=== PATIENT | male | born 1980 | race African-American/Black ===

== ENCOUNTER 2023-12-17 10:45 | Inpatient (IN) ==
--- NOTE | 2023-12-17 11:32 | Emergency Department Note ---
History of Present Illness General Chief complaint: Foreign Body Stated complaint: SWALLOWED SPORKS Time Seen by Provider: 12/17/23 11:22 History of Present Illness Maximum Pain Intensity: 8 NAME: BRANDON WALTERS AGE: 43 SEX: M : 1980 ARRIVES VIA: Walk-In INFORMANT: Patient ED PROVIDER(S): ABDULLAHI Tello, Hans Momin MD The patient is a 43-year-old male who arrives to the emergency department from the [facility] for ingestion of foreign body. He reports he has swallowed multiple sporks over the last few months. He reports initial attempts were to harm himself, however he states he is currently not suicidal or homicidal. He reports the last time he swallowed a foreign body was November 18 of this year. He reports upper abdominal pain, with diarrhea and bloody stools. He denies fever, he reports he is diabetic, insulin-dependent. He reports no nausea or vomiting, he is alert and oriented and able to answer questions appropriately, his vital signs are stable. Home Medications Medication Instructions Recorded Confirmed Type albuterol sulfate 90 mcg/actuation 2 puff inhalation QID PRN SOB ##0 09/30/23 12/17/23 History aerosol inhaler insulin glargine 100 unit/mL 30 unit subcut BID 09/30/23 12/17/23 History subcutaneous solution insulin regular human 100 unit/mL See Rx Instructions .Route .COMPLEX 09/30/23 12/17/23 History injection solution (Novolin R Regular U-100 Insulin) bismuth subsalicylate 262 mg/15 mL 524 mg PO BID PRN Abdominal Pain 12/17/23 12/17/23 History oral suspension Allergies Allergy/AdvReac Type Severity Reaction Status Date / Time mayonnaise Allergy Unknown Unknown Verified 12/17/23 14:16 shellfish derived Allergy Unknown Unknown Verified 12/17/23 14:16 Past Med/Surg History Problem List (Updated 12/17/23 @ 18:50 by ABDULLAHI Riddle) Rectal bleeding Abdominal pain Nausea and vomiting (Acute) Acute upper abdominal pain (Acute) Foreign body, swallowed (Acute) Foreign body ingestion History of endoscopy Antisocial personality disorder Cannabis use disorder Asthma Diabetes mellitus type 2 with complications Pure hypercholesterolemia Benign hypertension Conduct disorder, unspecified Social History Smoking Status: Never smoker Preferred Language: Nigerien Feels Safe at Home: Yes Physical Exam Vital Signs Vital Signs - 24 hr 12/17/23 11:14 12/17/23 13:27 12/17/23 15:21 Temperature 36.9 C Temperature Source Temporal Artery Scan Pulse Rate 86 Pulse Rate [Left] 78 78 Pulse Rhythm [Left] Pulse Strength [Left] Respiratory Rate 18 16 16 Respiratory Effort / Characteristics Non-Labored Spontaneous Non-Labored Spontaneous Non-Labored Spontaneous Respiratory Depth Normal Normal Normal Respiratory Pattern Regular Blood Pressure 158/102 H Blood Pressure [Left Arm] 135/96 149/99 H Blood Pressure Mean 120 Blood Pressure Mean [Left Arm] 109 115 Blood Pressure Position Sitting Blood Pressure Position [Left Arm] Pulse Oximetry 99 98 99 Oxygen Delivery Method Room Air Room Air Room Air Sepsis Recent Fever Within 48 Hours No Sepsis New/Unexplained Change in Mental Status N/A Sepsis Action Taken by Nursing No Action Required 12/17/23 17:18 12/17/23 17:40 Temperature 37 C Temperature Source Oral Pulse Rate Pulse Rate [Left] 82 86 Pulse Rhythm [Left] Regular Regular Pulse Strength [Left] Normal Respiratory Rate 20 18 Respiratory Effort / Characteristics Non-Labored Non-Labored Spontaneous Respiratory Depth Normal Normal Respiratory Pattern Regular Blood Pressure Blood Pressure [Left Arm] 147/98 H 151/93 H Blood Pressure Mean Blood Pressure Mean [Left Arm] 114 112 Blood Pressure Position Blood Pressure Position [Left Arm] Lying Lying Pulse Oximetry 99 92 Oxygen Delivery Method Room Air Room Air Sepsis Recent Fever Within 48 Hours Sepsis New/Unexplained Change in Mental Status Sepsis Action Taken by Nursing VITALS: Vitals are noted on the nurse's note and reviewed by myself. Hypertension. GENERAL: 43-year-old male, in no acute distress, nondiaphoretic, well-developed well-nourished. SKIN: The skin was without rashes, erythema, edema, or bruising. HEAD: Normocephalic atraumatic. HEART: Regular rate and rhythm without murmurs gallops or rubs. LUNGS: Clear to auscultation bilaterally without wheezes, rales or rhonchi. No retractions or accessory muscle use. ABDOMEN: Diffuse upper abdominal pain, tenderness to palpation. No rebound tenderness or guarding, abdomen is soft. MUSCULOSKELETAL: No muscle atrophy, erythema, or edema noted. Full range of motion without joint tenderness in all extremities. No tenderness to palpation. Normal gait. Strength 5/5 throughout. NEURO: Patient was alert and oriented to person place and time. No focal neurological deficits. Course Administered Medications Discontinued Medications Ioversol (Optiray 320 100ml) 92 ml IV ONCE ONE Stop: 12/17/23 15:54 Last Admin: 12/17/23 15:54 Dose: 92 ml Documented By: EDK Medical Decision Making Differential Diagnosis Foreign body ingestion, perforation, infection, as well as other pathologies. Medical Records Attestation: I reviewed the patient's medical records. Home Medications Current Medication List: was personally reviewed by me Laboratory Data Attestation: I reviewed the patient's lab results. No leukocytosis, stable hemoglobin and hematocrit, no significant electrolyte abnormalities, urinalysis 3+ glucose, negative for infection. 12/17/23 12:29 12/17/23 12:29 Lab Results 12/17/23 12/17/23 12/17/23 Range/Units 12:15 12:29 17:45 WBC 6.42 (4.8-10.8) K/ul RBC 5.65 (4.70-6.10) M/uL Hgb 13.7 L (14.0-18.0) g/dl Hct 42.8 (42.0-52.0) % MCV 75.8 L (80.0-100.0) fL MCH 24.2 L (25.0-34.0) pg MCHC 32.0 (32.0-36.0) g/dL RDW Std Deviation 35.9 L (36.4-46.3) fL RDW Coeff of Lety 13.4 (11.5-14.5) % Plt Count 256 (130-400) K/uL MPV 10.5 (9.4-12.4) fL Immature Gran % (Auto) 0.3 % Neut % (Auto) 61.7 % Lymph % (Auto) 27.7 % Summers % (Auto) 6.4 % Eos % (Auto) 3.4 % Baso % (Auto) 0.5 % Neut # (Auto) 3.96 (1.40-6.50) K/uL Lymph # (Auto) 1.78 (1.20-3.40) K/uL Summers # (Auto) 0.41 (0.11-0.59) K/uL Eos # (Auto) 0.22 (0.00-0.50) K/uL Baso # (Auto) 0.03 (0.00-0.20) K/uL Immature Gran # (Auto) 0.02 (0.01-0.20) K/uL Sodium 136 (136-145) mmol/L Potassium 4.1 (3.5-5.1) mmol/L Chloride 102 (98-107) mmol/L Carbon Dioxide 29 (21-32) mmol/L Anion Gap 5 (3-11) BUN 10 (6-23) mg/dl Creatinine 1.04 (0.6-1.4) mg/dl Est Cr Clr Drug Dosing 88.3 ml/min Est GFR ( Amer) 100.0 ml/min Est GFR (Non-Af Amer) 86.3 ml/min BUN/Creatinine Ratio 9.6 L (10-20) Glucose 261 H (70-99(Fasting)) mg/dl POC Glucose 77 (70-99) mg/dl Calcium 9.3 (8.6-10.3) mg/dl Total Bilirubin 0.4 (0.2-1.0) mg/dl AST 21 (13-39) U/L ALT 31 (7-52) U/L Alkaline Phosphatase 57 (34-104) U/L Total Protein 7.5 (6.0-8.3) gm/dl Albumin 4.4 (3.4-5.0) gm/dl Globulin 3.1 (2.5-4.0) gm/dl Albumin/Globulin Ratio 1.4 (0.9-2) Urine Color Yellow Urine Appearance Clear (Clear) Urine pH 6.5 (4.5-7.5) Ur Specific [place] 1.019 (1.000-1.030) Urine Protein Negative (Negative) Urine Glucose (UA) 3+ H (Negative) Urine Ketones Negative (Negative) Urine Blood Negative (Negative) Urine Nitrite Negative (Negative) Urine Bilirubin Negative (Negative) Urine Urobilinogen Negative (Negative) Ur Leukocyte Esterase Negative (Negative) Imaging Data Attestation: I personally reviewed and interpreted this imaging study as follows: Radiologist's Impression: KUB X-Ray 12/17/23 11:55 KUB CLINICAL HISTORY: Foreign body assessment. The patient swallowed a spork. FINDINGS: 3 AP, portable, supine abdominal radiographs are compared to study dated 09/30/2023. A 16 cm linear radiodense foreign body projects over the left upper quadrant, likely corresponding to the reported history of an ingested spork. There may be a second linear radiodense Foreign body projecting over the central upper abdomen. This is not well delineated. A button projecting over the right midabdomen could represent an ingested foreign body or could be external to the patient. No bowel obstruction is seen. Moderate fecal retention is noted in the right colon. There are no abnormal abdominal calcifications. The bony structures appear intact. IMPRESSION: 1. A 16 cm linear radiodense foreign body projecting over left upper quadrant likely corresponds to the reported history of a swallowed spork. 2. There may be a second faintly radiodense foreign body projected over the central upper abdomen. This nodule delineated. 3. A button projecting the right mid abdomen could represent an additional ingested foreign body or could be external to the patient. Correlate clinically. Electronically signed by: Hans Mckeon M.D. 12/17/2023 12:36 PM Abdomen/Pelvis CT 12/17/23 13:[address] WITH IV AND ORAL CONTRAST CT DOSE: 605.88 mGy.cm HISTORY: foreign body, rectal bleeding TECHNIQUE: Multiaxial CT images of the abdomen and pelvis were performed following the use of intravenous and oral contrast. A dose lowering technique was utilized adhering to the principles of ALARA. COMPARISON STUDY: None. FINDINGS: There is a 3 mm nodule within the left lower lobe on image 34. Mild dependent changes seen at the lung bases. No pneumoperitoneum. No pneumatosis. The liver, gallbladder, pancreas, spleen, and adrenal glands are unremarkable. The main portal vein is patent. Multiple bilateral renal hypodense lesions. Some of these are subcentimeter in size and technically too small to characterize. However, these favor cysts. No hydronephrosis. Normal caliber abdominal aorta. No retroperitoneal or pelvic lymphadenopathy. The bladder is unremarkable. Moderate fecal retention. No bowel wall thickening or obstruction. Normal appendix. There is a linear spoon-shaped radiopaque foreign body within the gastric antrum which extends into the proximal duodenum. This measures approximately 12 cm in length. There are multiple additional similar-appearing spoon-shaped radio opaque foreign bodies within a jejunal loop within the left side the abdomen also measuring 12 cm in length. The loop of bowel surrounding the radiopaque foreign bodies is slightly distended. However, no evidence for a bowel obstruction or bowel perforation at this time. IMPRESSION: 1. Multiple spoon-shaped radiopaque foreign bodies seen within the stomach/duodenum and a loop of the jejunum within the left mid abdomen. No evidence for a bowel obstruction or bowel perforation at this time. 2. A 3 mm indeterminate pulmonary nodule within the left lower lobe. ACT 112: Negative or not required by law. Electronically signed by: Gurwinder Higgins M.D. 12/17/2023 4:27 PM Blood Pressure Blood Pressure Findings: Elevated blood pressure Blood Pressure Disposition: elevated BP felt to be situational MDM Narrative The patient is a 43-year-old male who arrives to the emergency department for the above-stated complaint. Upon examination the patient reports diffuse tenderness to palpation of the upper abdomen, with foreign body ingestion in November. He reports diarrhea and bloody stools as well. He denies fever, nausea, vomiting. He reports he is an insulin-dependent diabetic. A saline lock was established, CBC, CMP were obtained which showed no leukocytosis, stable hemoglobin and hematocrit, and no significant electrolyte abnormalities. Urinalysis was obtained which showed 3+ glucose with no signs of infection. X- ray imaging of the abdomen shows a 16 cm linear radiodense foreign body projecting over the left upper quadrant likely corresponding to the reported history of a swallowed sport. There also may be a second faintly radiodense foreign body present over the central abdomen. I spoke with the emergency export traffic department manager to facilitate contact with gastroenterology. Dr. Quiñones was consulted who recommended endoscopy with possible general surgery consultation if needed. The patient was admitted to his services at this time, please refer to his documentation for further patient care. Impression & Plan Foreign body, swallowed, Acute upper abdominal pain Discharge Plan Visit Data Chief Complaint: Foreign Body Stated Complaint: SWALLOWED SPORKS ED Provider: Hans Momin ED Midlevel Provider: Joellen Parham Discharge Problem: Foreign body, swallowed, Acute upper abdominal pain Discharge Instructions Interventions: ED Discharge Assessment Last Done: 12/17/23 17:31 Discharge Problem: Foreign body, swallowed Qualifiers: Encounter type: initial encounter Qualified Code(s): T18.9XXA - Foreign body of alimentary tract, part unspecified, initial encounter
[2023-12-17 12:27] LABS: Appearance Urine Clear (Clear); Bilirubin Urine Negative (Negative); Blood Urine Negative (Negative); Color Urine Yellow; Glucose Urine UA 3+ (Negative); Ketones Urine Negative (Negative); Leukocyte Esterase Urine Negative (Negative); Nitrite Urine Negative (Negative); Protein Urine Negative (Negative); Specific Gravity Urine 1.019 (1.000-1.030); Urobilinogen Urine Negative (Negative); pH Urine 6.5 (4.5-7.5)
--- NOTE | 2023-12-17 12:38 | XRay Report ---
KUB CLINICAL HISTORY: Foreign body assessment. The patient swallowed a spork. FINDINGS: 3 AP, portable, supine abdominal radiographs are compared to study dated 09/30/2023. A 16 cm linear radiodense foreign body projects over the left upper quadrant, likely corresponding to the re ported history of an ingested spork. There may be a second linear radiodense Foreign body projecting over the central upper abdomen. This is not well delineated. A button projecting over the right midab domen could represent an ingested foreign body or could be external to the patient. No bowel obstruct ion is seen. Moderate fecal retention is noted in the right colon. There are no abnormal abdominal ca lcifications. The bony structures appear intact. IMPRESSION: 1. A 16 cm linear radiodense foreign body projecting over left upper quadrant likely corresponds to t he reported history of a swallowed spork. 2. There may be a second faintly radiodense foreign body projected over the central upper abdomen. Th is nodule delineated. 3. A button projecting the right mid abdomen could represent an additional ingested foreign body or c ould be external to the patient. Correlate clinically. Electronically signed by: Hans Mcekon M.D. 12/17/2023 12:36 PM
[2023-12-17 12:54] LABS: Basophils # (auto) 0.03 K/uL (0.00-0.20); Basophils % (auto) 0.5 %; Eosinophils # (auto) 0.22 K/uL (0.00-0.50); Eosinophils % (auto) 3.4 %; Hematocrit (blood only) 42.8 % (42.0-52.0); Hemoglobin 13.7 g/dl (14.0-18.0); Immature Granulocytes # (auto) 0.02 K/uL (0.01-0.20); Immature Granulocytes % (auto) 0.3 %; Lymphocytes # (auto) 1.78 K/uL (1.20-3.40); Lymphocytes % (auto) 27.7 %; Mean Corpuscular Hemoglobin 24.2 pg (25.0-34.0); Mean Corpuscular Volume 75.8 fL (80.0-100.0); Mean Platelet Volume 10.5 fL (9.4-12.4); Monocytes # (auto) 0.41 K/uL (0.11-0.59); Monocytes % (auto) 6.4 %; Neutrophils # (auto) 3.96 K/uL (1.40-6.50); Neutrophils % (auto) 61.7 %; Platelet Count 256 K/uL (130-400); RDW Coefficient of Variation 13.4 % (11.5-14.5); RDW Standard Deviation 35.9 fL (36.4-46.3); Red Blood Count 5.65 M/uL (4.70-6.10); White Blood Count 6.42 K/ul (4.8-10.8)
[2023-12-17 13:05] LABS: Albumin Globulin Ratio 1.4 (0.9-2); Albumin Level 4.4 gm/dl (3.4-5.0); BUN Creatinine Ratio 9.6 (10-20); Bilirubin,Total 0.4 mg/dl (0.2-1.0); Calcium 9.3 mg/dl (8.6-10.3); Creatinine Clr Calc Pharmacy 88.3 ml/min; Est GFR (Non-African American) 86.3 ml/min; Globulin 3.1 gm/dl (2.5-4.0); Potassium 4.1 mmol/L (3.5-5.1); Total Protein 7.5 gm/dl (6.0-8.3)
--- NOTE | 2023-12-17 14:14 | Gastrointestinal Consultation ---
<Statement entered by Jerrell Quiñones MD - 12/17/23 17:10> Patient seen and examined. Case discussed with MARINE OILER. The repeat CT shows no perforation and FB in stomach and jejunum. We may not be able to reach the FB in the jejunum. The EGD procedure, alternatives including no work up or treatment, risks and benefits were discussed. Among the risks discussed included cardiorespiratory suppression,aspiration, bleeding, failure to diagnose cancer or other pathology and perforation requiring surgery. In addition we discussed that if specimens are obtained it may be deemed beneficial to send these for genetic/DNA testing. The patient claimed to understand all that was discussed, consented to all and all of his questions were answered. Date of Consultation December 17, 2023 Assessment & Plan (1) Foreign body, swallowed: (2) Abdominal pain: (3) Rectal bleeding: Plan Unclear location of foreign bodies. Discussed with Dr. Quiñones, on-call booking police officer. Will obtain a CT scan for further evaluation and further decisions regarding any potential endoscopic intervention. History of Present Illness Reason for Consultation: Food bolus, rectal bleeding History of Present Illness Patient is a 43 yo incarcerated male who presented to the ED due to reports of ingesting sporks & rectal bleeding. He has a history of ingesting foreign objects in the past and had an EGD on 09/30/23 for spork removal. The patient notes he has RLQ pain. He denies upper abdominal pain. He denies vomiting. He notes bright red blood per rectum, worsened with bowel movements. He has not had a bowel movement since 12/13/23. PMH includes asthma, DM2, HLD, HTN, and antisocial personality disorder. Xray imaging in the ED indicated: IMPRESSION: 1. A 16 cm linear radiodense foreign body projecting over left upper quadrant likely corresponds to the reported history of a swallowed spork. 2. There may be a second faintly radiodense foreign body projected over the central upper abdomen. This nodule delineated. 3. A button projecting the right mid abdomen could represent an additional ingested foreign body or could be external to the patient. Correlate clinically. Allergies Allergy/AdvReac Type Severity Reaction Status Date / Time [facility] Allergy Unknown Unknown Verified 12/17/23 14:16 shellfish derived Allergy Unknown Unknown Verified 12/17/23 14:16 Home Medications Medication Instructions Recorded Confirmed Type albuterol sulfate 90 mcg/actuation 2 puff inhalation QID PRN SOB ##0 09/30/23 12/17/23 History aerosol inhaler insulin glargine 100 unit/mL 30 unit subcut BID 09/30/23 12/17/23 History subcutaneous solution insulin regular human 100 unit/mL See Rx Instructions .Route .COMPLEX 09/30/23 12/17/23 History injection solution (Novolin R Regular U-100 Insulin) bismuth subsalicylate 262 mg/15 mL 524 mg PO BID PRN Abdominal Pain 12/17/23 12/17/23 History oral suspension Patient History Social History Smoking Status: Never smoker Preferred Language: Serbian Feels Safe at Home: Yes Review of Systems Constitutional: no fever and no chills Respiratory: no cough and no dyspnea Cardiovascular: no chest pain Gastrointestinal: + abdominal pain (RLQ pain), + constipat ion and + blood in stools Physical Exam Constitutional: well developed Respiratory: normal respiratory effort, lungs clear to auscultation Cardiovascular: Rate/Rhythm: regular rate Gastrointestinal (Abdomen): normal bowel sounds, soft, nontender, no hepatosplenomegaly Musculoskeletal: Head/Neck/Chest: normocephalic Psychiatric: Orientation: alert and oriented x 3 Results & Data Vital Signs (Past 12 Hours) Vital Signs Temp Pulse Pulse Resp BP BP Pulse Ox 12/17/23 13:27 78 16 135/96 98 12/17/23 11:14 36.9 C 86 18 158/102 H 99 O2 Del Method 12/17/23 13:27 Room Air 12/17/23 11:14 Room Air PG Care Time/CCT Total # of Minutes Spent Total Time Spent with Patient: Total time spent is greater than 50% in coordination of care (as documented) at patient's floor/unit and/or counseling patient: Coding Level of Care Code 02631 IN/OBS CONSULT LVL 4,60M Diagnoses Foreign body, swallowed T18.9XXA Encounter type: initial encounter Abdominal pain R10.9 Rectal bleeding K62.5 (1) Foreign body, swallowed Encounter type: initial encounter Qualified Code(s): T18.9XXA - Foreign body of alimentary tract, part unspecified, initial encounter
[2023-12-17] MEDS: OPTIRAY 320 100ml IV ONE (15:54)
--- NOTE | 2023-12-17 16:28 | CT Scan Report ---
ABDOMEN AND PELVIS CT WITH IV AND ORAL CONTRAST CT DOSE: 605.88 mGy.cm HISTORY: foreign body, rectal bleeding TECHNIQUE: Multiaxial CT images of the abdomen and pelvis were performed following the use of intrave nous and oral contrast. A dose lowering technique was utilized adhering to the principles of ALARA. COMPARISON STUDY: None. FINDINGS: There is a 3 mm nodule within the left lower lobe on image 34. Mild dependent changes seen at the lung bases. No pneumoperitoneum. No pneumatosis. The liver, gallbladder, pancreas, spleen, and adrenal glands are unremarkable. The main portal vein is patent. Multiple bilateral renal hypodense lesions. Some of these are subcentimeter in size and technically too small to characterize. However, these favor cysts. No hydronephrosis. Normal caliber abdominal aorta. No retroperitoneal or pelvic ly mphadenopathy. The bladder is unremarkable. Moderate fecal retention. No bowel wall thickening or obs truction. Normal appendix. There is a linear spoon-shaped radiopaque foreign body within the gastric antrum which extends into the proximal duodenum. This measures approximately 12 cm in length. There a re multiple additional similar-appearing spoon-shaped radio opaque foreign bodies within a jejunal lo op within the left side the abdomen also measuring 12 cm in length. The loop of bowel surrounding the radiopaque foreign bodies is slightly distended. However, no evidence for a bowel obstruction or bow el perforation at this time. IMPRESSION: 1. Multiple spoon-shaped radiopaque foreign bodies seen within the stomach/duodenum and a loop of the jejunum within the left mid abdomen. No evidence for a bowel obstruction or bowel perforation at thi s time. 2. A 3 mm indeterminate pulmonary nodule within the left lower lobe. ACT 112: Negative or not required by law. Electronically signed by: Gurwinder Higgins M.D. 12/17/2023 4:27 PM
[2023-12-17] MEDS ORDERED: SIMETHICONE (ENDO) IR PRN (17:06)
[2023-12-17] MEDS ORDERED: MIDAZOLAM HCL 1 MG/ML 2ML VIAL ONE (17:12)
[2023-12-17] MEDS ORDERED: fentaNYL citrate PF 100 MCG/2 ML VIAL ONE ×2 (17:12→18:12)
[2023-12-17] MEDS ORDERED: SUCCINYLCHOLINE CHLORIDE 20 MG/ML 10 ML VIAL IV ONE (17:13)
[2023-12-17] MEDS ORDERED: LIDOCAINE 2% 2 ML VIAL/AMP(20MG/ML) INFIL ONE (17:13)
[2023-12-17] MEDS ORDERED: PROPOFOL IV EMULSION 10 MG/ML 20 ML VIAL IV ONE (17:13)
--- NOTE | 2023-12-17 17:21 | Anesthesiology Consultation ---
Date of Service December 17, 2023 Assessment & Plan Chart Review Chart Review: Acceptable Risk for Surgery and Patient NOT seen in Pre Admission Testing History Surgery Operation Date: 12/17/23 17:00 Proposed Procedures p Esophagogastroduodenoscopy, Food Bolus - Jerrell Alida Quiñones MD Height/Weight Height: 5 ft 6 in Weight: 78.2 kg Allergies Allergy/AdvReac Type Severity Reaction Status Date / Time mayonnaise Allergy Unknown Unknown Verified 12/17/23 14:16 shellfish derived Allergy Unknown Unknown Verified 12/17/23 14:16 Medications Home Medications Medication Instructions Recorded Confirmed Last Taken albuterol sulfate 90 mcg/actuation 2 puff inhalation QID PRN SOB ##0 09/30/23 12/17/23 Unknown aerosol inhaler insulin glargine 100 unit/mL 30 unit subcut BID 09/30/23 12/17/23 12/17/23 subcutaneous solution insulin regular human 100 unit/mL See Rx Instructions .Route .COMPLEX 09/30/23 12/17/23 12/16/23 injection solution (Novolin R Regular U-100 Insulin) bismuth subsalicylate 262 mg/15 mL 524 mg PO BID PRN Abdominal Pain 12/17/23 12/17/23 Unknown oral suspension NPO Date Last Intake of Fluids: 12/17/23 Time Last Intake of Fluids: 09:00 Last Intake of Fluids Comment: coffee Date Last Intake of Solids: 12/17/23 Time Last Intake of Solids: 09:00 Last Intake of Solids Comment: cream of wheat Social History Smoking Status: Never smoker Physical Exam Vital Signs Last Vital Signs Temp 36.9 C 12/17/23 11:14 Pulse 82 12/17/23 17:18 Resp 20 12/17/23 17:18 BP 147/98 H 12/17/23 17:18 Pulse Ox 99 12/17/23 17:18 O2 Del Method Room Air 12/17/23 17:18 Testing Laboratory Results 12/17/23 12:29 12/17/23 12:29 Urine Color Yellow 12/17/23 12:15 Urine Appearance Clear (Clear) 12/17/23 12:15 Urine pH 6.5 (4.5-7.5) 12/17/23 12:15 Ur Specific [place] 1.019 (1.000-1.030) 07/12/24 12:15 Urine Protein Negative (Negative) 12/17/23 12:15 Urine Glucose (UA) 3+ (Negative) H 12/17/23 12:15 Urine Ketones Negative (Negative) 12/17/23 12:15 Urine Nitrite Negative (Negative) 12/17/23 12:15 Ur Leukocyte Esterase Negative (Negative) 12/17/23 12:15
[2023-12-17] MEDS ORDERED: ePHEDrine sulfate 50 MG/ML AMP IV PRN (17:43)
[2023-12-17] MEDS ORDERED: ONDANSETRON INJ 2 MG/ML 2 ML VIAL IV PRN (17:43)
[2023-12-17] MEDS ORDERED: ATROPINE SULFATE 0.1 MG/ML 10ML SYR IV PRN (17:43)
[2023-12-17] MEDS ORDERED: fentaNYL citrate PF 100 MCG/2 ML VIAL IV PRN (17:43)
[2023-12-17] MEDS ORDERED: DEXTROSE 50% 50 ML SYRINGE IV PRN ×2 (17:52→21:11)
[2023-12-17] MEDS ORDERED: NALOXONE HCL 0.4 MG/1 ML VIAL/CARP ONE (19:21)
--- NOTE | 2023-12-17 19:33 | GI REPORT ---
[facility] Patient: BRANDON WALTERS : 1980 Sex at : Male Age: 43 Years Procedure: Upper GI endoscopy Date: 12/17/2023 Attending Physician: Jerrell Quiñones MD Referring MD: Marquise ERAZO Indications: - Gastrointestinal foreign body Medications: - General Anesthesia - See the Anesthesia note for documentation of the administered medications Complications: - No immediate complications. Estimated Blood Loss: - Estimated blood loss was minimal. Procedure: - The egd scope was introduced through the mouth and advanced to the jejunum. - The upper GI endoscopy was extremely difficult due to presence of foreign body. - The patient tolerated the procedure. Findings: - The examined esophagus was normal. - 3 sporks were found in the gastric antrum and in the gastric body. There was also ulceration and erosions in distal body and antrum likely trauma related from sporks. These were removed one at a time. and stomach was cleared. - Multiple erosions were found in the duodenal bulb, in the first portion of the duodenum and in the second portion of the duodenum. - A few erosions without bleeding were found in the jejunum. After 3 sporks were removed we inserted a pediatric colonoscope and completed the exam to the jejunum where it was mentioned on CT that another foreign body was identified. We saw evidence of erosions - likely traumatic - but no foreign body. Impression: - Normal esophagus. - Were found in the stomach. - Duodenal erosions. - Jejunal erosion without bleeding. - No specimens collected. Recommendation: - Observe patient's clinical course. Procedure Code(s): - 83107, Esophagogastroduodenoscopy, flexible, transoral; diagnostic, including collection of specimen(s) by brushing or washing, when performed (separate procedure) Diagnosis Code(s): - T18.2XXA, Foreign body in stomach, initial encounter - K26.9, Duodenal ulcer, unspecified as acute or chronic, without hemorrhage or perforation - K28.9, Gastrojejunal ulcer, unspecified as acute or chronic, without hemorrhage or perforation CPT(R) - 2023 copyright [employer]. All Rights Reserved. The CPT codes, CCI edits and ICD codes generated are intended as suggestions and were generated based on input data. These codes are preliminary and upon traffic or system dispatcher review may be revised to meet current compliance and payer requirements. The provider is responsible for the final determination of appropriate codes, and modifiers. Jerrell Quiñones MD This document has been electronically signed. Note Initiated:12/17/2023 Note Completed:12/17/2023 7:32 PM Jrerell Quiñones This document has been electronically signed. Note Amended:12/17/2023 7:37 PM [id number]
[2023-12-17] MEDS: DEXTROSE 50% 50 ML SYRINGE IV ONE (19:54)
[2023-12-17] MEDS: DEXTROSE 50% 50 ML SYRINGE IV STA (19:54)
--- NOTE | 2023-12-17 20:45 | Anesthesiology Progress Note ---
Date of Service December 17, 2023 Anesthesia Post Procedure Vital Signs Vital Signs: Temp Pulse Pulse Pulse Resp BP BP 12/17/23 20:25 88 12 137/86 12/17/23 20:15 36.4 C L 86 12 133/82 12/17/23 20:05 90 12 137/86 12/17/23 19:55 99 H 12 136/74 12/17/23 19:45 97 H 18 133/82 12/17/23 19:37 36.0 C L 100 H 10 L 133/86 12/17/23 17:40 37 C 86 18 151/93 H 12/17/23 17:18 82 20 147/98 H 12/17/23 15:21 78 16 149/99 H 12/17/23 13:27 78 16 135/96 12/17/23 11:14 36.9 C 86 18 158/102 H Pulse Ox O2 Del Method O2 Flow Rate 12/17/23 20:25 100 Nasal Cannula 2 12/17/23 20:15 100 Nasal Cannula 2 12/17/23 20:05 97 Nasal Cannula 2 12/17/23 19:55 94 Room Air 12/17/23 19:45 95 Room Air 12/17/23 19:37 99 Oxymask 4 12/17/23 17:40 92 Room Air 12/17/23 17:18 99 Room Air 12/17/23 15:21 99 Room Air 12/17/23 13:27 98 Room Air 12/17/23 11:14 99 Room Air Pain Intensity Abdomen: Pain Intensity: 6 Transfer of Care Handoff Completed per policy Notes Mental Status: alert / awake / arousable and participated in evaluation Patient Amnestic to Procedure: Yes Nausea / Vomiting: adequately controlled Pain: adequately controlled Airway Patency, RR, SpO2: stable & adequate BP & HR: stable & adequate Hydration State: stable & adequate Anesthetic Complications: no major complications apparent and Pt Satisfied with anesthetic care
--- NOTE | 2023-12-17 21:00 | History & Physical Report ---
Date of Service December 17, 2023 Assessment & Plan (1) GI bleed: Plan: Duodenal and jejunal erosions on endoscopy post intentional ingestion of multiple foreign bodies (sporks) from last month. Anemia secondary to above hypertension, BP stable, patient not on maintenance medications hyperlipidemia, not on statin Rx DM 2 insulin requiring, hypoglycemic episode upon arrival at the ER, hemoglobin A1c noted to be 9.3 bronchial asthma, not in acute exacerbation antisocial personality disorder/impulse control/conduct disorder, patient currently without self-harm intent Incidental finding of pulmonary nodule Admit to medical telemetry IV PPI Follow H&H, transfuse PRBC if hemoglobin less than 7 and or from symptomatic anemia Repeat CT abdomen pelvis and General Surgery consult as per GI recommendations Re: Retained ingested foreign bodies (Dr. Paris already consulted by GI specialist.) Continue n.p.o. status Hold basal insulin for now, resume basal insulin adjusted for n.p.o. status once hypoglycemia resolved, ISS BG goal 1 10-1 40 Outpatient follow-up surveillance imaging for SPN following Fleischner criteria DVT prophylaxis. SCDs Re: GI bleed Full code Text document was generated using [employer] voice recognition software. It may contain grammatical or spelling errors. Kindly contact undersigned for clarification of any documentation item in question. History of Present Illness Chief Complaint: Abdominal pain, foreign body ingestion Primary Care Provider: CASTRO Camarillo History obtained from patient and records. Medical history significant for hypertension, hyperlipidemia, DM 2 insulin requiring, bronchial asthma, antisocial personality disorder, impulse control/ conduct disorder. Last [facility] ER visit September 2023 for spoon ingestion secondary to self-harm. Gastritis and nonbleeding duodenal ulcers noted on EGD. Two sporks removed successfully. Patient discharged on Prilosec course. Last month, patient ingested multiple sporks again secondary to fleeting self- harm intent. 10 days ago, patient noted achy abdominal pain radiating to his chest and left shoulder associated with bloody diarrhea symptoms. No hematemesis, coffee-ground emesis, fever or chills as per patient. Patient without self-harm intent since last month. Patient sent to ER today due to worsening symptoms. CT abdomen pelvis showed multiple spoon-shaped radiopaque foreign bodies seen within the stomach/duodenum and a loop of the jejunum within the left mid abdomen. Urgent EGD done by GI specialist on-call. Duodenal and jejunal erosions noted on endoscopy. 3 sporks were found in the gastric antrum and subsequently removed. GI specialist recommended admission for surgical evaluation due to potential remaining foreign bodies in the small intestine. Medical History as above Surgical History : None Family History : Heart disease Personal/Social history : Non-smoker, no EtOH intake, current inmate Allergies Allergy/AdvReac Type Severity Reaction Status Date / Time mayonnse Allergy Unknown Unknown Verified 12/17/23 14:16 shellfish derived Allergy Unknown Unknown Verified 12/17/23 14:16 Home Medications Medication Instructions Recorded Confirmed Type albuterol sulfate 90 mcg/actuation 2 puff inhalation QID PRN SOB ##0 09/30/23 12/17/23 History aerosol inhaler insulin glargine 100 unit/mL 30 unit subcut BID 09/30/23 12/17/23 History subcutaneous solution insulin regular human 100 unit/mL See Rx Instructions .Route .COMPLEX 09/30/23 12/17/23 History injection solution (Novolin R Regular U-100 Insulin) bismuth subsalicylate 262 mg/15 mL 524 mg PO BID PRN Abdominal Pain 12/17/23 12/17/23 History oral suspension Past Med/Surg History Problem List (Updated 12/18/23 @ 10:20 by Jerrell Quiñones MD) Gastric erosion GI bleed Rectal bleeding Abdominal pain Nausea and vomiting (Acute) Acute upper abdominal pain (Acute) Foreign body, swallowed (Acute) Foreign body ingestion History of endoscopy Antisocial personality disorder Cannabis use disorder Asthma Diabetes mellitus type 2 with complications Pure hypercholesterolemia Benign hypertension Conduct disorder, unspecified Social History Smoking Status: Never smoker Hx Alcohol Use: No Hx Substance Use: No Preferred Language: Greenlandic Communication Ability: Effective 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 Beliefs That Will Affect Care: None Current Living Situation: Other Current Living Situation Comment: Inmate at [facility] Feels Safe at Home: Yes Assistive Devices: Glasses Review of Systems Review of Systems: As per HPI, all other systems reviewed and negative Physical Exam Physical Exam: GENERAL: Comfortable, slightly anxious, no respiratory distress SKIN: Pallor, warm HEENT: Alopecia, pale palpebral conjunctivae, no ptosis, dry buccal mucosa NECK : Supple, no tenderness CHEST : CTA, no tenderness HEART : RRR, no obvious murmurs ABDOMEN: Some distention, hypogastric tenderness EXTREMITIES : No LE swelling/tenderness, no other conspicuous deformities noted NEUROLOGIC : Coherent, no facial asymmetry, no other gross focality Results & Data Results & Data Vital Signs (Past 12 Hours) Vital Signs Temp Pulse Pulse Pulse Resp BP BP 12/17/23 20:25 88 12 137/86 12/17/23 20:15 36.4 C L 86 12 133/82 12/17/23 20:05 90 12 137/86 12/17/23 19:55 99 H 12 136/74 12/17/23 19:45 97 H 18 133/82 12/17/23 19:37 36.0 C L 100 H 10 L 133/86 12/17/23 17:40 37 C 86 18 151/93 H 12/17/23 17:18 82 20 147/98 H 12/17/23 15:21 78 16 149/99 H 12/17/23 13:27 78 16 135/96 12/17/23 11:14 36.9 C 86 18 158/102 H Pulse Ox O2 Del Method O2 Flow Rate 12/17/23 20:25 100 Nasal Cannula 2 12/17/23 20:15 100 Nasal Cannula 2 12/17/23 20:05 97 Nasal Cannula 2 12/17/23 19:55 94 Room Air 12/17/23 19:45 95 Room Air 12/17/23 19:37 99 Oxymask 4 12/17/23 17:40 92 Room Air 12/17/23 17:18 99 Room Air 12/17/23 15:21 99 Room Air 12/17/23 13:27 98 Room Air 12/17/23 11:14 99 Room Air Laboratory Results Laboratory Results WBC 6.42 K/ul (4.8-10.8) 12/17/23 12:29 RBC 5.65 M/uL (4.70-6.10) 12/17/23 12:29 Hgb 13.7 g/dl (14.0-18.0) L 12/17/23 12:29 Hct 42.8 % (42.0-52.0) 12/17/23 12:29 MCV 75.8 fL (80.0-100.0) L 12/17/23 12:29 MCH 24.2 pg (25.0-34.0) L 12/17/23 12:29 MCHC 32.0 g/dL (32.0-36.0) 12/17/23: RDW Std Deviation 35.9 fL (36.4-46.3) L 12/17/23: RDW Coeff of Lety 13.4 % (11.5-14.5) 12/17/23 12: Plt Count 256 K/uL (130-400) 12/17/23: MPV 10.5 fL (9.4-12.4) 12/17/23 12: Immature Gran % (Auto) 0.3 % 12/17/23 12: Neut % (Auto) 61.7 % 12/17/23: Lymph % (Auto) 27.7 % 12/17/23: Christian % (Auto) 6.4 % 12/17/23 12: Eos % (Auto) 3.4 % 12/17/23: Baso % (Auto) 0.5 % 12/17/23: Neut # (Auto) 3.96 K/uL (1.40-6.50) 12/17/23: Lymph # (Auto) 1.78 K/uL (1.20-3.40) 12/17/23: Christian # (Auto) 0.41 K/uL (0.11-0.59) 12/17/23 12: Eos # (Auto) 0.22 K/uL (0.00-0.50) 12/17/23: Baso # (Auto) 0.03 K/uL (0.00-0.20) 12/17/23 12: Immature Gran # (Auto) 0.02 K/uL (0.01-0.20) 12/17/23 12: Sodium 136 mmol/L (136-145) 12/17/23 12: Potassium 4.1 mmol/L (3.5-5.1) 12/17/23 12: Chloride 102 mmol/L (98-107) 12/17/23 12: Carbon Dioxide 29 mmol/L (21-32) 12/17/23 12: Anion Gap 5 (3-11) 12/17/23 12: BUN 10 mg/dl (6-23) 12/17/23: Creatinine 1.04 mg/dl (0.6-1.4) 12/17/23 12: Est Cr Clr Drug Dosing 88.3 ml/min 12/17/23 12:29 Est GFR ( Amer) 100.0 ml/min 12/17/23 12: Est GFR (Non-Af Amer) 86.3 ml/min 12/17/23 12: BUN/Creatinine Ratio 9.6 (10-20) L 12/17/23 12:29 Glucose 261 mg/dl (70-99(Fasting)) H 12/17/23 12: POC Glucose 118 mg/dl (70-99) H 12/17/23 20:18 Calcium 9.3 mg/dl (8.6-10.3) 12/17/23 12: Total Bilirubin 0.4 mg/dl (0.2-1.0) 12/17/23 12: AST 21 U/L (13-39) 12/17/23 12: ALT 31 U/L (7-52) 12/17/23 12: Alkaline Phosphatase 57 U/L (34-104) 12/17/23 12: Total Protein 7.5 gm/dl (6.0-8.3) 12/17/23 12: Albumin 4.4 gm/dl (3.4-5.0) 12/17/23 12: Globulin 3.1 gm/dl (2.5-4.0) 12/17/23 12: Albumin/Globulin Ratio 1.4 (0.9-2) 12/17/23 12: Urine Color Yellow 12/17/23 12:15 Urine Appearance Clear (Clear) 12/17/23 12:15 Urine pH 6.5 (4.5-7.5) 12/17/23 12:15 Ur Specific [place] 1.019 (1.000-1.030) 12/17/23 12:15 Urine Protein Negative (Negative) 12/17/23 12:15 Urine Glucose (UA) 3+ (Negative) H 12/17/23 12:15 Urine Ketones Negative (Negative) 12/17/23 12:15 Urine Blood Negative (Negative) 12/17/23 12: Urine Nitrite Negative (Negative) 12/17/23 12:15 Urine Bilirubin Negative (Negative) 12/17/23 12:15 Urine Urobilinogen Negative (Negative) 12/17/23 12:15 Ur Leukocyte Esterase Negative (Negative) 12/17/23 12:15 Impressions KUB X-Ray 12/17/23 11:55 KUB CLINICAL HISTORY: Foreign body assessment. The patient swallowed a spork. FINDINGS: 3 AP, portable, supine abdominal radiographs are compared to study dated 09/30/2023. A 16 cm linear radiodense foreign body projects over the left upper quadrant, likely corresponding to the reported history of an ingested spork. There may be a second linear radiodense Foreign body projecting over the central upper abdomen. This is not well delineated. A button projecting over the right midabdomen could represent an ingested foreign body or could be external to the patient. No bowel obstruction is seen. Moderate fecal retention is noted in the right colon. There are no abnormal abdominal calcifications. The bony structures appear intact. IMPRESSION: 1. A 16 cm linear radiodense foreign body projecting over left upper quadrant likely corresponds to the reported history of a swallowed spork. 2. There may be a second faintly radiodense foreign body projected over the central upper abdomen. This nodule delineated. 3. A button projecting the right mid abdomen could represent an additional ingested foreign body or could be external to the patient. Correlate clinically. Electronically signed by: Hans Mckeon M.D. 12/17/2023 12:36 PM Abdomen/Pelvis CT 12/17/23 13:[address] WITH IV AND ORAL CONTRAST CT DOSE: 605.88 mGy.cm HISTORY: foreign body, rectal bleeding TECHNIQUE: Multiaxial CT images of the abdomen and pelvis were performed following the use of intravenous and oral contrast. A dose lowering technique was utilized adhering to the principles of ALARA. COMPARISON STUDY: None. FINDINGS: There is a 3 mm nodule within the left lower lobe on image 34. Mild dependent changes seen at the lung bases. No pneumoperitoneum. No pneumatosis. The liver, gallbladder, pancreas, spleen, and adrenal glands are unremarkable. The main portal vein is patent. Multiple bilateral renal hypodense lesions. Some of these are subcentimeter in size and technically too small to characterize. However, these favor cysts. No hydronephrosis. Normal caliber abdominal aorta. No retroperitoneal or pelvic lymphadenopathy. The bladder is unremarkable. Moderate fecal retention. No bowel wall thickening or obstruction. Normal appendix. There is a linear spoon-shaped radiopaque foreign body within the gastric antrum which extends into the proximal duodenum. This measures approximately 12 cm in length. There are multiple additional similar-appearing spoon-shaped radio opaque foreign bodies within a jejunal loop within the left side the abdomen also measuring 12 cm in length. The loop of bowel surrounding the radiopaque foreign bodies is slightly distended. However, no evidence for a bowel obstruction or bowel perforation at this time. IMPRESSION: 1. Multiple spoon-shaped radiopaque foreign bodies seen within the stomach/duodenum and a loop of the jejunum within the left mid abdomen. No evidence for a bowel obstruction or bowel perforation at this time. 2. A 3 mm indeterminate pulmonary nodule within the left lower lobe. ACT 112: Negative or not required by law. Electronically signed by: Gurwinder Higgins M.D. 12/17/2023 4:27 PM
[2023-12-17] MEDS ORDERED: PROMETHAZINE HCL 12.5 MG in SODIUM CHLORIDE 0.9% 50 ML IV PRN (21:10)
[2023-12-17] MEDS ORDERED: ACETAMINOPHEN 1,000 MG/100 ML VIAL IV PRN (21:10)
[2023-12-17] MEDS ORDERED: GLUCAGON FOR INJ 1 MG VIAL SQ PRN (21:11)
[2023-12-17] MEDS ORDERED: GLUCOSE 10 TAB/TUBE PO PRN (21:11)
[2023-12-17] MEDS ORDERED: GLUCOSE 40% GEL 15 GM TUBE PO PRN (21:11)
[2023-12-17] MEDS ORDERED: CARBOHYDRATES FOR HYPOGLYCEMIA PO PRN (21:11)
[2023-12-17] MEDS: INSULIN ASPART PER UNIT CHARGE SC SCH (21:58)
[2023-12-17 22:29] LABS: Estimated Average Glucose 220 mg/dl; Hemoglobin A1C 9.3 % (4.5-5.6)
[2023-12-17] MEDS: PANTOprazole 40 MG in SYRINGE 0 ML IV ONE (22:41)
[2023-12-17] MEDS: SODIUM CHLORIDE 0.9% 1,000 ML IV SCH (22:41)
[2023-12-17 23:34] LABS: Hematocrit (blood only) 41.2 % (42.0-52.0); Hemoglobin 13.1 g/dl (14.0-18.0)
--- NOTE | 2023-12-18 02:02 | CT Scan Report ---
Exam(s): CT ABDOMEN + PELVIS Without Contrast EXAM: CT Abdomen and Pelvis Without Intravenous Contrast CLINICAL HISTORY: Reason for exam: abd pain sp endoscopy. TECHNIQUE: Axial computed tomography images of the abdomen and pelvis without intravenous contrast. CTDI is 14.19 mGy and DLP is 699.57 mGy-cm. Automated exposure control was utilized for the study. A dose lowering technique was utilized adhering to the principles of ALARA. COMPARISON: 12/17/2023. FINDINGS: Lung bases: Bilateral basilar dependent atelectasis. No mass. No consolidation. ABDOMEN: Liver: Unremarkable. Gallbladder and bile ducts: Unremarkable. No calcified stones. No ductal dilation. Pancreas: Unremarkable. No ductal dilation. Spleen: Unremarkable. No splenomegaly. Adrenals: Unremarkable. No mass. Kidneys and ureters: Bilateral renal cyst, poorly characterized. No obstructive uropathy. No obstructing renal or ureteral calculi. No hydronephrosis or hydroureter. Stomach and bowel: The previously demonstrated spoon-shaped radiodensity within the stomach is no longer identified. Additional fork and probable overlying spoon-shaped radiopaque foreign body in nonobstructed small bowel loop in the left abdomen likely jejunum is present, likely not significantly changed in location. Oral contrast material was noted in the distal small bowel, appendix and colon to the splenic flexure. No evidence for bowel obstruction or ileus. Moderate stool within the left and sigmoid colon. No evidence for diverticulitis. PELVIS: Appendix: No findings to suggest acute appendicitis. Bladder: Unremarkable. No stones. Reproductive: Unremarkable as visualized. ABDOMEN and PELVIS: Intraperitoneal space: No free air. No free fluid. Bones/joints: No acute fracture. Soft tissues: Unremarkable. Vasculature: Unremarkable. No abdominal aortic aneurysm. Lymph nodes: Unremarkable. No enlarged lymph nodes. IMPRESSION: No free gas or free intraperitoneal fluid to suggest bowel perforation status post endoscopy. Redemonstrated fork and spoon shaped adjacent foreign bodies within small bowel loop in the left abdomen, not significantly changed. No proximal obstruction. Previously demonstrated foreign body within the stomach is no longer identified. No bowel obstruction or ileus. Otherwise no significant interval change. Electronically signed by: Mohamud Diaz M.D. 12/18/23 02:01 AM
[2023-12-18 05:55] LABS: Magnesium 1.9 mg/dl (1.7-2.4)
[2023-12-18] MEDS: PANTOprazole 40 MG in SYRINGE 0 ML IV SCH (07:24)
[2023-12-18] MEDS: MAGNESIUM SULFATE / D5W 1 GM/100 ML BAG IV ONE (07:24)
--- NOTE | 2023-12-18 07:35 | Anesthesiology Consultation ---
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 Surgery Operation Date: 12/17/23 17:00 Proposed Procedures p Esophagogastroduodenoscopy, Food Bolus - Jerrell Quiñones MD Operation Date: 12/18/23 10:00 Proposed Procedures p Exploratory Laparotomy - Giana Dyer DO Height/Weight Height: 5 ft 6 in Weight: 78 kg Allergies Allergy/AdvReac Type Severity Reaction Status Date / Time mayonnaise Allergy Unknown Unknown Verified 12/17/23 14:16 shellfish derived Allergy Unknown Unknown Verified 12/17/23 14:16 Medications Home Medications Medication Instructions Recorded Confirmed Last Taken albuterol sulfate 90 mcg/actuation 2 puff inhalation QID PRN SOB ##0 09/30/23 12/17/23 Unknown aerosol inhaler insulin glargine 100 unit/mL 30 unit subcut BID 09/30/23 12/17/23 12/17/23 subcutaneous solution insulin regular human 100 unit/mL See Rx Instructions .Route .COMPLEX 09/30/23 12/17/23 12/16/23 injection solution (Novolin R Regular U-100 Insulin) bismuth subsalicylate 262 mg/15 mL 524 mg PO BID PRN Abdominal Pain 12/17/23 12/17/23 Unknown oral suspension Active Medications Generic Name Dose Route Start Last Admin Trade Name Freq PRN Reason Stop Dose Admin Sodium Chloride 1,000 mls @ 75 mls/hr 12/17/23 22:00 12/17/23 22:41 Nss IV 01/16/24 21:59 75 mls/hr .[id number] APOLLO Administration Pantoprazole Sodium 40 mg/ 10 mls @ 5 mls/min 12/18/23 09:00 12/18/23 07:24 Syringe IV 01/17/24 08:59 5 mls/min BID APOLLO Administration Magnesium Sulfate/Dextrose 1 gm in 100 mls @ 50 mls/hr 12/18/23 07:15 12/18/23 07:24 Magnesium Sulfate / D5w IV 12/18/23 09:14 50 mls/hr ONE ONE Administration Insulin Aspart 0 units 12/17/23 21:15 12/18/23 06:05 Insulin Aspart Per Unit Charge SC 01/16/24 21:14 Not Given Q6 APOLLO NPO Date Last Intake of Fluids: 12/17/23 Time Last Intake of Fluids: 09:00 Last Intake of Fluids Comment: coffee Date Last Intake of Solids: 12/17/23 Time Last Intake of Solids: 09:00 Last Intake of Solids Comment: cream of wheat Social History Smoking Status: Never smoker Hx Alcohol Use: No Hx Substance Use: No substance use type: does not use Physical Exam Vital Signs Last Vital Signs Temp 98.1 F 12/18/23 07:31 Pulse 95 H 12/18/23 07:31 Resp 18 12/18/23 07:31 BP 139/82 12/18/23 07:31 Pulse Ox 97 12/18/23 07:31 O2 Del Method Room Air 12/18/23 07:31 O2 Flow Rate 2 12/17/23 21:26 Testing Laboratory Results 12/17/23 22:40 12/17/23 12:29 Hemoglobin A1c 9.3 % (4.5-5.6) H 12/17/23 12:29 Urine Color Yellow 12/17/23 12:15 Urine Appearance Clear (Clear) 12/17/23 12:15 Urine pH 6.5 (4.5-7.5) 12/17/23 12:15 Ur Specific [place] 1.019 (1.000-1.030) 12/17/23 12:15 Urine Protein Negative (Negative) 12/17/23 12:15 Urine Glucose (UA) 3+ (Negative) H 12/17/23 12:15 Urine Ketones Negative (Negative) 12/17/23 12:15 Urine Nitrite Negative (Negative) 12/17/23 12:15 Ur Leukocyte Esterase Negative (Negative) 12/17/23 12:15 Blood Type A Positive 12/17/23 22:40 Antibody Screen NEGATIVE 12/17/23 22:40 12/18/23 12/17/23 12/17/23 06:04 23:33 21:56 POC Glucose 105 H 87 79 12/17/23 12/17/23 20:18 19:42 POC Glucose 118 H 68 L*
--- NOTE | 2023-12-18 08:24 | Surgery Consultation ---
Date of Consultation December 18, 2023 Assessment & Plan (1) Foreign body, swallowed: (2) History of endoscopy: Plan Patient will be taken to the operating room for exploratory laparoscopy, possible open, possible bowel resection to remove the final large spork seen in the small intestine on post EGD CT. The details of the procedure have been explained to him including the risks and benefits. All of his questions were answered. Consent was obtained. Remain NPO, IVF No chemical DVT ppx at this time. History of Present Illness Reason for Consultation: foreign body in the small bowel, unretrievable by endoscopy Attending Physician: Jenni Holloway MD History of Present Illness History obtained from patient and records. Medical history significant for hypertension, hyperlipidemia, DM 2 insulin requiring, bronchial asthma, antisocial personality disorder, impulse control/conduct disorder. Last [facility] ER visit September 2023 for spoon ingestion secondary to self-harm. Gastritis and nonbleeding duodenal ulcers noted on EGD. Two sporks removed successfully. Patient discharged on Prilosec course. Last month, patient ingested multiple sporks again secondary to fleeting self- harm intent. 10 days ago, patient noted achy abdominal pain radiating to his chest and left shoulder associated with bloody diarrhea symptoms. No hematemesis, coffee-ground emesis, fever or chills as per patient. Patient without self-harm intent since last month. Patient sent to ER today due to worsening symptoms. CT abdomen pelvis showed multiple spoon-shaped radiopaque foreign bodies seen within the stomach/duodenum and a loop of the jejunum within the left mid abdomen. Urgent EGD done by GI specialist on-call. Duodenal and jejunal erosions noted on endoscopy. 3 sporks were found in the gastric antrum and subsequently removed. GI specialist recommended admission for surgical evaluation due to potential remaining foreign bodies in the small intestine. Allergies Allergy/AdvReac Type Severity Reaction Status Date / Time banner Allergy Unknown Unknown Verified 12/17/23 14:16 shellfish derived Allergy Unknown Unknown Verified 12/17/23 14:16 Home Medications Medication Instructions Recorded Confirmed Type albuterol sulfate 90 mcg/actuation 2 puff inhalation QID PRN SOB ##0 09/30/23 12/17/23 History aerosol inhaler insulin glargine 100 unit/mL 30 unit subcut BID 09/30/23 12/17/23 History subcutaneous solution insulin regular human 100 unit/mL See Rx Instructions .Route .COMPLEX 09/30/23 12/17/23 History injection solution (Novolin R Regular U-100 Insulin) bismuth subsalicylate 262 mg/15 mL 524 mg PO BID PRN Abdominal Pain 12/17/23 12/17/23 History oral suspension Patient History Social History Smoking Status: Never smoker Hx Alcohol Use: No Hx Substance Use: No Preferred Language: Telugu Communication Ability: Effective 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 Beliefs That Will Affect Care: None Current Living Situation: Other Current Living Situation Comment: Inmate at [facility] Feels Safe at Home: Yes Assistive Devices: Glasses Review of Systems Review of Systems: All systems reviewed & are unremarkable except as noted in HPI & below Physical Exam Constitutional: average body habitus; not ill appearing, not in distress and not diaphoretic Respiratory: normal respiratory effort; no respiratory distress, no labored breathing and does not use accessory muscles Cardiovascular: Rate/Rhythm: regular rate; not tachycardic Extremities: no edema Gastrointestinal (Abdomen): Inspection/Auscultation: abdomen normal to inspection; abdomen not distended Percussion/Palpation: abdomen soft; abdomen nontender, no guarding and abdomen not rigid Results & Data Vital Signs (Past 12 Hours) Vital Signs Temp Pulse Pulse Resp BP Pulse Ox O2 Del Method 12/18/23 07:31 36.7 C 95 H 18 139/82 97 Room Air 12/18/23 02:40 36.6 C 106 H 16 135/74 97 Room Air 12/18/23 00:00 95 H 12/17/23 22:00 36.7 C 95 H 19 121/80 97 Room Air 12/17/23 21:50 36.7 C 96 H 18 121/80 96 Room Air 12/17/23 21:26 91 H 12 129/88 99 Nasal Cannula 12/17/23 21:10 92 H 12 129/85 99 Nasal Cannula 12/17/23 21:00 89 12 138/85 100 Nasal Cannula 12/17/23 20:50 94 H 12 135/90 100 Nasal Cannula 12/17/23 20:35 87 12 128/88 100 Nasal Cannula 12/17/23 20:25 88 12 137/86 100 Nasal Cannula O2 Flow Rate 12/18/23 07:31 07/13/24 02:40 12/18/23 00:00 12/17/23 22:00 12/17/23 21:50 12/17/23 21:26 2 12/17/23 21:10 2 12/17/23 21:00 2 12/17/23 20:50 2 12/17/23 20:35 2 12/17/23 20:25 2 Diagnostic Findings 12/17/232058 post EGD CT A/P: IMPRESSION: No free gas or free intraperitoneal fluid to suggest bowel perforation status post endoscopy. Redemonstrated fork and spoon shaped adjacent foreign bodies within small bowel loop in the left abdomen, not significantly changed. No proximal obstruction. Previously demonstrated foreign body within the stomach is no longer identified. No bowel obstruction or ileus. Otherwise no significant interval change. I personally reviewed all of his admission imaging Results Complete Blood Count Results: RBC 5.65 M/uL (4.70-6.10) 12/17/23 WBC 6.42 K/ul (4.8-10.8) 12/17/23 Hgb 13.1 g/dl (14.0-18.0) L 12/17/23 Hct 41.2 % (42.0-52.0) L 12/17/23 Plt Count 256 K/uL (130-400) 12/17/23 PG Care Time/CCT Total # of Minutes Spent Total Time Spent with Patient: Total time spent is greater than 50% in coordination of care (as documented) at patient's floor/unit and/or counseling patient: [place] [address] IN/OBS CONSULT LVL 3,45M Patient Type New History Detailed Exam Detailed Medical Decision Making Moderate Complexity Diagnoses Foreign body, swallowed T18.9XXA Encounter type: initial encounter History of endoscopy Z98.890 (1) Foreign body, swallowed Encounter type: initial encounter Qualified Code(s): T18.9XXA - Foreign body of alimentary tract, part unspecified, initial encounter
[2023-12-18] MEDS ORDERED: ONDANSETRON INJ 2 MG/ML 2 ML VIAL IV PRN (08:54)
[2023-12-18] MEDS ORDERED: HYDROmorphone INJ 1 MG/ML SYRINGE IV PRN (08:54)
[2023-12-18] MEDS ORDERED: ePHEDrine sulfate 50 MG/ML AMP IV PRN (08:54)
[2023-12-18] MEDS ORDERED: ATROPINE SULFATE 0.1 MG/ML 10ML SYR IV PRN (08:54)
--- NOTE | 2023-12-18 09:19 | Hospitalist Progress Note ---
Date of Service December 18, 2023 Assessment & Plan (1) GI bleed: Plan Pt is a 43yoM with PMHx significant for antisocial personality disorder, impulse control/conduct disorder, hypertension, hyperlipidemia, DM 2 insulin requiring, bronchial asthma admitted for surgical procedure after foreign body ingestion. Foreign Body ingestion Duodenal and Jejunal erosions Pt with Hx of ingesting sporks Was having N/V and abdominal pain related to ingestion of multiple foreign bodies (sporks) from last month KUB peformed CT abd/pelvis obtained. Showed "Multiple spoon-shaped radiopaque foreign bodies seen within the stomach/duodenum and a loop of the jejunum within the left mid abdomen. No evidence for a bowel obstruction or bowel perforation at this time." EGD performed on arrival to the ED -3 sporks were removed we inserted a pediatric colonoscope and completed the exam to the jejunum where it was mentioned on CT that another foreign body was identified. We saw evidence of erosions - likely traumatic - but no foreign body. Impression: - Normal esophagus. - Were found in the stomach. - Duodenal erosions. - Jejunal erosion without bleeding. - No specimens collected. Pt was referred to General Surgery by GI for additional evaluation of foreign body in the small bowel that was unretrievable by endoscopy. Per General surgery, -Patient will be taken to the operating room for exploratory laparoscopy, possible open, possible bowel resection to remove the final large spork seen in the small intestine on post EGD CT. -Remain NPO, IVF -No chemical DVT ppx at this time. Continue IV PPI Continue to monitor Anemia secondary to above Follow H&H, transfuse PRBC if hemoglobin less than 7 and or from symptomatic anemia Pulmonary nodule Noted on CT abd/pelvis: A 3 mm indeterminate pulmonary nodule within the left lower lobe. Oupt followup hypertension BP stable patient not on maintenance medications Continue to monitor hyperlipidemia not on statin Rx DMII, not currently controlled insulin requiring hypoglycemic episode upon arrival at the ER hemoglobin A1c noted to be 9.3 Close PCP followup bronchial asthma not in acute exacerbation Stable, continue to monitor antisocial personality disorder/impulse control/conduct disorder patient currently without self-harm intent [facility] Diet: currently NPO DVT prophylaxis: SCDs Re: GI bleed Dispo: back to care home Admission and Anticipated Discharge Date Admission Date: December 17, 2023 Subjective pt was seen laying in bed working with incentive spirometer. Denies pain, asking about eating. Review of Systems Review of Systems: All systems reviewed & are unremarkable except as noted in Subjective Physical Exam Physical Exam: General: Alert, oriented. No acute distress Skin: surgical incisions clean Neuro: No gross deficits while laying in bed HEENT: NC/AT CV: RRR Resp: no increased effort of breathing Abdomen: Soft, nontender Extremities: No edema in lower extremities bilaterally. Results & Data Results & Data Vital Signs (Past 12 Hours) Vital Signs Temp Pulse Pulse Resp BP Pulse Ox O2 Del Method 12/18/23 07:31 36.7 C 95 H 18 139/82 97 Room Air 12/18/23 02:40 36.6 C 106 H 16 135/74 97 Room Air 12/18/23 00:00 95 H 12/17/23 22:00 36.7 C 95 H 19 121/80 97 Room Air 12/17/23 21:50 36.7 C 96 H 18 121/80 96 Room Air 12/17/23 21:26 91 H 12 129/88 99 Nasal Cannula O2 Flow Rate 12/18/23 07:31 12/18/23 02:40 12/18/23 00:00 12/17/23 22:00 12/17/23 21:50 12/17/23 21:26 2 Diagnostic Findings KUB X-Ray 12/17/23 11:55 KUB CLINICAL HISTORY: Foreign body assessment. The patient swallowed a spork. FINDINGS: 3 AP, portable, supine abdominal radiographs are compared to study dated 09/30/2023. A 16 cm linear radiodense foreign body projects over the left upper quadrant, likely corresponding to the reported history of an ingested spork. There may be a second linear radiodense Foreign body projecting over the central upper abdomen. This is not well delineated. A button projecting over the right midabdomen could represent an ingested foreign body or could be external to the patient. No bowel obstruction is seen. Moderate fecal retention is noted in the right colon. There are no abnormal abdominal calcifications. The bony structures appear intact. IMPRESSION: 1. A 16 cm linear radiodense foreign body projecting over left upper quadrant likely corresponds to the reported history of a swallowed spork. 2. There may be a second faintly radiodense foreign body projected over the central upper abdomen. This nodule delineated. 3. A button projecting the right mid abdomen could represent an additional ingested foreign body or could be external to the patient. Correlate clinically. Electronically signed by: Hans Mckeon M.D. 12/17/2023 12:36 PM Abdomen/Pelvis CT 12/17/23 13:[address] WITH IV AND ORAL CONTRAST CT DOSE: 605.88 mGy.cm HISTORY: foreign body, rectal bleeding TECHNIQUE: Multiaxial CT images of the abdomen and pelvis were performed following the use of intravenous and oral contrast. A dose lowering technique w as utilized adhering to the principles of ALARA. COMPARISON STUDY: None. FINDINGS: There is a 3 mm nodule within the left lower lobe on image 34. Mild dependent changes seen at the lung bases. No pneumoperitoneum. No pneumatosis. The liver, gallbladder, pancreas, spleen, and adrenal glands are unremarkable. The main portal vein is patent. Multiple bilateral renal hypodense lesions. Some of these are subcentimeter in size and technically too small to characterize. However, these favor cysts. No hydronephrosis. Normal caliber abdominal aorta. No retroperitoneal or pelvic lymphadenopathy. The bladder is unremarkable. Moderate fecal retention. No bowel wall thickening or obstruction. Normal appendix. There is a linear spoon-shaped radiopaque foreign body within the gastric antrum which extends into the proximal duodenum. This measures approximately 12 cm in length. There are multiple additional similar-appearing spoon-shaped radio opaque foreign bodies within a jejunal loop within the left side the abdomen also measuring 12 cm in length. The loop of bowel surrounding the radiopaque foreign bodies is slightly distended. However, no evidence for a bowel obstruction or bowel perforation at this time. IMPRESSION: 1. Multiple spoon-shaped radiopaque foreign bodies seen within the stomach/duodenum and a loop of the jejunum within the left mid abdomen. No evidence for a bowel obstruction or bowel perforation at this time. 2. A 3 mm indeterminate pulmonary nodule within the left lower lobe. ACT 112: Negative or not required by law. Electronically signed by: Gurwinder Higgins M.D. 12/17/2023 4:27 PM Abdomen/Pelvis CT 12/17/23 20:59 Exam(s): CT ABDOMEN + PELVIS Without Contrast EXAM: CT Abdomen and Pelvis Without Intravenous Contrast CLINICAL HISTORY: Reason for exam: abd pain sp endoscopy. TECHNIQUE: Axial computed tomography images of the abdomen and pelvis without intravenous contrast. CTDI is 14.19 mGy and DLP is 699.57 mGy-cm. Automated exposure control was utilized for the study. A dose lowering technique was utilized adhering to the principles of ALARA. COMPARISON: 12/17/2023. FINDINGS: Lung bases: Bilateral basilar dependent atelectasis. No mass. No consolidation. ABDOMEN: Liver: Unremarkable. Gallbladder and bile ducts: Unremarkable. No calcified stones. No ductal dilation. Pancreas: Unremarkable. No ductal dilation. Spleen: Unremarkable. No splenomegaly. Adrenals: Unremarkable. No mass. Kidneys and ureters: Bilateral renal cyst, poorly characterized. No obstructive uropathy. No obstructing renal or ureteral calculi. No hydronephrosis or hydroureter. Stomach and bowel: The previously demonstrated spoon-shaped radiodensity within the stomach is no longer identified. Additional fork and probable overlying spoon-shaped radiopaque foreign body in nonobstructed small bowel loop in the left abdomen likely jejunum is present, likely not significantly changed in location. Oral contrast material was noted in the distal small bowel, appendix and colon to the splenic flexure. No evidence for bowel obstruction or ileus. Moderate stool within the left and sigmoid colon. No evidence for diverticulitis. PELVIS: Appendix: No findings to suggest acute appendicitis. Bladder: Unremarkable. No stones. Reproductive: Unremarkable as visualized. ABDOMEN and PELVIS: Intraperitoneal space: No free air. No free fluid. Bones/joints: No acute fracture. Soft tissues: Unremarkable. Vasculature: Unremarkable. No abdominal aortic aneurysm. Lymph nodes: Unremarkable. No enlarged lymph nodes. IMPRESSION: No free gas or free intraperitoneal fluid to suggest bowel perforation status post endoscopy. Redemonstrated fork and spoon shaped adjacent foreign bodies within small bowel loop in the left abdomen, not significantly changed. No proximal obstruction. Previously demonstrated foreign body within the stomach is no longer identified. No bowel obstruction or ileus. Otherwise no significant interval change. Electronically signed by: Mohamud Diaz M.D. 12/18/23 02:01 AM
[2023-12-18] MEDS ORDERED: LIDOCAINE 2% 2 ML VIAL/AMP(20MG/ML) INFIL ONE (09:24)
[2023-12-18] MEDS ORDERED: MIDAZOLAM HCL 1 MG/ML 2ML VIAL ONE (09:24)
[2023-12-18] MEDS ORDERED: PROPOFOL IV EMULSION 10 MG/ML 20 ML VIAL IV ONE ×12 (09:24→12:12)
[2023-12-18] MEDS ORDERED: DEXAMETHASONE SOD INJ 4 MG/ML VIAL ONE (09:24)
[2023-12-18] MEDS ORDERED: ROCURONIUM BROMIDE 10 MG/ML 5 ML VIAL IV ONE (09:24)
[2023-12-18] MEDS ORDERED: fentaNYL citrate PF 100 MCG/2 ML VIAL ONE (09:24)
[2023-12-18] MEDS ORDERED: ONDANSETRON INJ 2 MG/ML 2 ML VIAL ONE (09:24)
[2023-12-18] MEDS ORDERED: PHARMACY GLYCEMIC MGMT CONSULT PRN (09:33)
[2023-12-18] MEDS ORDERED: HYDROmorphone INJ 2 MG/ML SYR/VIAL ONE (10:21)
--- NOTE | 2023-12-18 10:21 | Gastroenterology Progress Note ---
Date of Service December 18, 2023 Assessment & Plan (1) Foreign body ingestion: Plan: Unable to reach FB in SB even with pediatric colonoscope. Repeat CT shows still present and no real change in position. Appreciate surgical consult and plan is to explore with removal of FBs. (2) Gastric erosion: Plan: In SB as well and likely traumatic from ingested FB. Still would use PPI - once daily for about 2 months. Otherwise plan per surgery. IP GI Service will sign off. Admission and Anticipated Discharge Date Admission Date: December 17, 2023 Subjective Patient feels Okay. Physical Exam Constitutional: Afebrile VSS Respiratory: Lungs: Clear anteriorly Cardiovascular: Heart: RRR Gastrointestinal (Abdomen): NL BS, soft and nontender Results & Data Results & Data Vital Signs (Past 12 Hours) Vital Signs Temp Pulse Pulse Resp BP Pulse Ox O2 Del Method 12/18/23 08:00 87 12/18/23 07:31 36.7 C 95 H 18 139/82 97 Room Air 12/18/23 02:40 36.6 C 106 H 16 135/74 97 Room Air 12/18/23 00:[address] scan shows clearing of sporks from stomach but unchanged in SB PG Care Time/CCT Total # of Minutes Spent Total Time Spent with Patient: Total time spent is greater than 50% in coordination of care (as documented) at patient's floor/unit and/or counseling patient: Coding Level of Care Code 15639 SUB INP/OBS CARE 1/25MIN Diagnoses Foreign body ingestion T18.9XXA Gastric erosion K25.9
[2023-12-18] MEDS: BUPIVACAINE/EPINEPHRINE 0.5% MPF 1:200,000 30 ML VIAL ONE (12:09)
[2023-12-18] MEDS ORDERED: SUGAMMADEX SODIUM 200 MG/2 ML VIAL IV ONE (12:11)
--- NOTE | 2023-12-18 12:34 | Operative Report ---
PG Post Operative Report Pre & Post Diagnosis Operation Date: 12/18/23 10:00 Pre-Op Diagnosis: Foreign body, swallowed Post-Op Diagnosis: Foreign body, swallowed I identified the patient and participated in the time-out.: Yes Procedure Operation Date: 12/18/23 10:00 Actual Procedures p Diagnostic laparoscopy; enterotomy for the removal of foreign bodies and repair of that enterotomy(Not Applicable) - Giana Dyer DO Surgeon Giana Dyer DO Spooler Maru Byrd NP Estimated Blood Loss 5 Findings See Below 5 plastic sporks within the small bowel. Specimens 5 sporks Drains None Anesthesia Type General Complications None Indications 43 y/o M ingested foreign body large sporks. EGD by GI was successful in removing sporks retained in the stomach. Imaging confirmed additional sporks remaining in the small intestine too far down stream. Description of Procedure The patient was brought back to the operating room and placed on the operating table in supine position. He was connected to cardiac and oxygen monitoring, supplemental O2 was administered and the patient was administered general anesthesia. A secure airway was established. A Parra catheter was inserted. The abdomen was prepped and draped in typical sterile fashion and a timeout was conducted. Intra-abdominal access was gained using a Veress needle and CO2 insufflation to goal pressure 15 mmHg was initiated. Once this pressure was achieved, a 5 mm laparoscope was used to insert a 5 mm trocar with an Optiview obturator was inserted into the abdomen and 2 additional 5 mm trocars were inserted along the right upper and lower quadrants. The small bowel was run starting from the ligament of Treitz to an area where an elongated foreign body was encountered measuring several centimeters in length within the jejunum. This area was grasped with a grasper and a small (incision was made lateral to the umbilicus. This incision was used to bring the small bowel just distal to the edge of the foreign bodies into view. An enterotomy was made using cautery, with some milking the end of the foreign bodies were able to be gently grasped and withdrawn from the small bowel and. The foreign bodies were carefully removed from the small bowel proving to be an additional 5 sports. During this process, succus was controlled to prevent spillage from within the abdomen. Once the foreign bodies were removed, the enterotomy was repaired with horizontally using 4-0 Monocryl and 3-0 silk Lembert sutures. The anastomosis was copiously irrigated and dried. The lumen was patent and small bowel was reduced back into the abdomen. The muscle and fascia were closed at this incision site using 0 PDS and pneumoperitoneum was reestablished. A 5 mm laparoscope was reinserted and the from the ligament of Treitz. The anastomosis was approached and appeared intact. This was gently swept away the remainder of the small bowel was able to be run into the terminal ileum. There were no additional large foreign bodies identified throughout the small bowel. CO2 insufflation was discontinued, excess pneumoperitoneum was evacuated. The instruments and trocars have been removed. The deep dermis and all incisions was approximated using 3-0 Vicryl suture. The skin incisions at the left paramedian incision was approximated using 4-0 Vicryl suture. All incisions were dressed with Dermabond. Throughout the case was noted that there was not much urine output. Once the Parra catheter was attempted to be removed, it was reported that the balloon did not seem to be completely within the bladder and there was evidence for evacuation of bloody urine when the Parra was repositioned. For this reason the Parra is left in place at this time. He tolerated the procedure well. The patient was awakened from anesthesia, the secure airway was removed and he was transferred to recovery in stable condition. I attest to the content of the Intraoperative Record and any orders documented therein. Any exceptions are noted below.
[2023-12-18] MEDS: fentaNYL citrate PF 100 MCG/2 ML VIAL IV PRN (12:50)
--- NOTE | 2023-12-18 12:55 | Anesthesiology Progress Note ---
Date of Service December 18, 2023 Anesthesia Post Procedure Vital Signs Vital Signs: Temp Pulse Pulse Pulse Resp BP Pulse Ox 12/18/23 08:00 87 12/18/23 07:31 98.1 F 95 H 18 139/82 97 12/18/23 02:40 97.9 F 106 H 16 135/74 97 12/18/23 00:00 95 H 12/17/23 22:00 98.1 F 95 H 19 121/80 97 12/17/23 21:50 98.1 F 96 H 18 121/80 96 12/17/23 21:26 91 H 12 129/88 99 12/17/23 21:10 92 H 12 129/85 99 12/17/23 21:00 89 12 138/85 100 12/17/23 20:50 94 H 12 135/90 100 12/17/23 20:35 87 12 128/88 100 12/17/23 20:25 88 12 137/86 100 12/17/23 20:15 97.5 F L 86 12 133/82 100 12/17/23 20:05 90 12 137/86 97 12/17/23 19:55 99 H 12 136/74 94 12/17/23 19:45 97 H 18 133/82 95 12/17/23 19:37 96.8 F L 100 H 10 L 133/86 99 12/17/23 17:40 98.6 F 86 18 151/93 H 92 12/17/23 17:18 82 20 147/98 H 99 12/17/23 15:21 78 16 149/99 H 99 12/17/23 13:27 78 16 135/96 98 O2 Del Method O2 Flow Rate 12/18/23 08:00 12/18/23 07:31 Room Air 12/18/23 02:40 Room Air 12/18/23 00:00 12/17/23 22:00 Room Air 12/17/23 21:50 Room Air 12/17/23 21:26 Nasal Cannula 2 12/17/23 21:10 Nasal Cannula 2 12/17/23 21:00 Nasal Cannula 2 12/17/23 20:50 Nasal Cannula 2 12/17/23 20:35 Nasal Cannula 2 12/17/23 20:25 Nasal Cannula 2 12/17/23 20:15 Nasal Cannula 2 12/17/23 20:05 Nasal Cannula 2 12/17/23 19:55 Room Air 12/17/23 19:45 Room Air 12/17/23 19:37 Oxymask 4 12/17/23 17:40 Room Air 12/17/23 17:18 Room Air 12/17/23 15:21 Room Air 12/17/23 13:27 Room Air Pain Intensity Abdomen: Pain Intensity: 0 Transfer of Care Handoff Completed per policy Notes Mental Status: alert / awake / arousable and participated in evaluation Patient Amnestic to Procedure: Yes Nausea / Vomiting: adequately controlled Pain: adequately controlled Airway Patency, RR, SpO2: stable & adequate BP & HR: stable & adequate Hydration State: stable & adequate Anesthetic Complications: no major complications apparent and Pt Satisfied with anesthetic care
[2023-12-18] MEDS ORDERED: MoRPHine SULFATE 4 MG/ML 1 ML CARP\\VIAL IV PRN (13:37)
[2023-12-18] MEDS ORDERED: MoRPHine SULFATE 2 MG/ML CARP IV PRN (13:37)
[2023-12-18] MEDS ORDERED: ALBUTEROL HFA 8 GM INHALER INH PRN (13:37)
[2023-12-18] MEDS: LACTATED RINGER'S 1,000 ML IV SCH (13:53)
[2023-12-18] MEDS: ACETAMINOPHEN 1,000 MG/100 ML VIAL IV SCH (13:57)
--- NOTE | 2023-12-18 15:11 | Pharmacy Report ---
Pharmacy Glycemic Short Note 2 - Date of Service December 18, 2023 - Glycemic Short BSG Results (Last 24 hours): 12/17/23 12/17/23 12/17/23 17:45 19:42 20:18 POC Glucose 77 68 L* 118 H 12/17/23 12/17/23 12/18/23 21:56 23:33 06:04 POC Glucose 79 87 105 H 12/18/23 12/18/23 11:28 12:53 POC Glucose 132 H 126 H OUTPATIENT ANTIDIABETIC REGIMEN: * Lantus 30 units bid ASSESSMENT: * 43 year old admitted with GI bleed/foreign body ingestion. Type 2 diabetic with A1c 9.3%. Pharmacy consulted for glycemic management. Patient NPO for surgery, BSGS 120s. IV dexamethasone given intraoperatively, anticipate steroid induced hyperglycemia. Will plan to add on scale for basal insulin at HS and tighten novolog parameters PLAN FOR INPATIENT GLYCEMIC CONTROL: * Hold outpatient oral diabetes medications * Basal insulin * Lantus 10-20 units HS * Bolus insulin * NovoLog per scale ACHS or Q6hrs while NPO * Goal Range: Low 110 mg/dL - High 140 mg/dL * Correction Factor: 20 mg/dL/unit * Nutritional / Prandial insulin per carb ratio of 1 unit per 7 grams CHO consumed
[2023-12-18 15:21] LABS: Hematocrit (blood only) 39.3 % (42.0-52.0); Hemoglobin 12.3 g/dl (14.0-18.0); Mean Corpuscular Hemoglobin 23.8 pg (25.0-34.0); Mean Corpuscular Hgb Conc 31.3 g/dL (32.0-36.0); Mean Corpuscular Volume 76.2 fL (80.0-100.0); Platelet Count 223 K/uL (130-400); RDW Coefficient of Variation 13.6 % (11.5-14.5); RDW Standard Deviation 37.3 fL (36.4-46.3); Red Blood Count 5.16 M/uL (4.70-6.10); White Blood Count 11.13 K/ul (4.8-10.8)
[2023-12-18 15:40] LABS: BUN Creatinine Ratio 10.4 (10-20); Calcium 8.5 mg/dl (8.6-10.3); Creatinine Clr Calc Pharmacy 86.5 ml/min; Est GFR (African American) 97.8 ml/min; Est GFR (Non-African American) 84.3 ml/min; Potassium 4.1 mmol/L (3.5-5.1)
[2023-12-18 15:46] LABS: Basophils # (auto) 0.01 K/uL (0.00-0.20); Basophils % (auto) 0.1 %; Immature Granulocytes # (auto) 0.04 K/uL (0.01-0.20); Immature Granulocytes % (auto) 0.4 %; Lymphocytes # (auto) 0.53 K/uL (1.20-3.40); Lymphocytes % (auto) 4.8 %; Monocytes # (auto) 0.26 K/uL (0.11-0.59); Monocytes % (auto) 2.3 %; Neutrophils # (auto) 10.29 K/uL (1.40-6.50); Neutrophils % (auto) 92.4 %
[2023-12-18] MEDS ORDERED: LANTUS PER UNIT CHARGE SQ SCH (19:30)
[2023-12-18] MEDS: LANTUS PER UNIT CHARGE SC SCH (20:37)
[2023-12-19 05:29] LABS: Hematocrit (blood only) 37.1 % (42.0-52.0); Hemoglobin 11.9 g/dl (14.0-18.0); Mean Corpuscular Hgb Conc 32.1 g/dL (32.0-36.0); Mean Corpuscular Volume 74.8 fL (80.0-100.0); Mean Platelet Volume 10.9 fL (9.4-12.4); Platelet Count 231 K/uL (130-400); RDW Coefficient of Variation 13.3 % (11.5-14.5); RDW Standard Deviation 35.6 fL (36.4-46.3); Red Blood Count 4.96 M/uL (4.70-6.10)
[2023-12-19 05:42] LABS: BUN Creatinine Ratio 13.2 (10-20); Calcium 8.7 mg/dl (8.6-10.3); Creatinine Clr Calc Pharmacy 86.5 ml/min; Est GFR (African American) 97.8 ml/min; Est GFR (Non-African American) 84.3 ml/min; Magnesium 1.7 mg/dl (1.7-2.4); Phosphorus 3.6 mg/dl (2.5-4.9)
--- NOTE | 2023-12-19 10:17 | Surgery Progress Note ---
<Statement entered by Giana Dyer DO - 12/19/23 16:22> I have seen and examined this patient with the surgical PA, I agree with this plan. Date of Service December 19, 2023 Assessment & Plan (1) Foreign body ingestion: Plan: POD#1 diagnostic laparoscopy, removal of foreign bodies and repair of surigcal enterotomy WBC 7.9, hbg 11.9. vitals stable incisions c/d/i pt hungry, will start with clears and see how he fairs awaiting further return of bowel function d/c sullivan ambulate as possible Admission and Anticipated Discharge Date Admission Date: December 17, 2023 Subjective Patient feeling okay. Complains of dry eyes. Is hungry. Pain controlled. No nausea/vomiting. No return of bowel function yet . Physical Exam Physical Exam: awake/alert, no distress Gastrointestinal (Abdomen): Inspection/Auscultation: + abdominal surgical incision (c/d/i with skin glue); abdomen not distended Percussion/Palpation: + abdomen tender (expected lina incisional discomfort) Results & Data Vital Signs (Past 12 Hours) Vital Signs Temp Pulse Pulse Resp BP Pulse Ox O2 Del Method 12/19/23 07:26 97.7 F 82 18 138/80 97 Room Air 12/19/23 02:59 98.2 F 85 16 126/77 96 Room Air 12/18/23 23:46 96 H 12/18/23 22:55 98.8 F 94 H 16 126/73 94 Room Air PG Care Time/CCT Total # of Minutes Spent Total Time Spent with Patient: Total time spent is greater than 50% in coordination of care (as documented) at patient's floor/unit and/or counseling patient: Coding Level of Care Code 92367 Post Operative Follow-Up Diagnoses Foreign body ingestion T18.9XXA
[2023-12-19] MEDS: INSULIN ASPART PER UNIT CHARGE SC SCH (12:34)
--- NOTE | 2023-12-19 14:19 | Hospitalist Progress Note ---
Date of Service December 19, 2023 Assessment & Plan (1) GI bleed: Plan Pt is a 43yoM with PMHx significant for antisocial personality disorder, impulse control/conduct disorder, hypertension, hyperlipidemia, DM 2 insulin requiring, bronchial asthma admitted for surgical procedure after foreign body ingestion. Foreign Body ingestion Duodenal and Jejunal erosions Pt with Hx of ingesting sporks Was having N/V and abdominal pain related to ingestion of multiple foreign bodies (sporks) from last month KUB peformed CT abd/pelvis obtained. Showed "Multiple spoon-shaped radiopaque foreign bodies seen within the stomach/duodenum and a loop of the jejunum within the left mid abdomen. No evidence for a bowel obstruction or bowel perforation at this time." EGD performed on arrival to the ED -3 sporks were removed we inserted a pediatric colonoscope and completed the exam to the jejunum where it was mentioned on CT that another foreign body was identified. We saw evidence of erosions - likely traumatic - but no foreign body. Impression: - Normal esophagus. - Were found in the stomach. - Duodenal erosions. - Jejunal erosion without bleeding. - No specimens collected. Pt was referred to General Surgery by GI for additional evaluation of foreign body in the small bowel that was unretrievable by endoscopy. Per General surgery, -s/p diagnostic laparoscopy, removal of foreign bodies and repair of surgical enterotomy on 12/17 -awaiting further return of bowel function -d/c sullivan -ambulate as possible Continue IV PPI Continue clears Continue to monitor Anemia, microcytic AM anemia panel Follow H&H, transfuse PRBC if hemoglobin less than 7 and or from symptomatic anemia Pulmonary nodule Noted on CT abd/pelvis: A 3 mm indeterminate pulmonary nodule within the left lower lobe. Oupt followup hypertension BP stable patient not on maintenance medications Continue to monitor hyperlipidemia not on statin Rx DMII, not currently controlled insulin requiring hypoglycemic episode upon arrival at the ER hemoglobin A1c noted to be 9.3 Close PCP followup bronchial asthma not in acute exacerbation Stable, continue to monitor antisocial personality disorder/impulse control/conduct disorder patient currently without self-harm intent [facility] attempts Diet:clears DVT prophylaxis: SCDs Re: GI bleed Dispo: back to shelter Admission and Anticipated Discharge Date Admission Date: December 17, 2023 Subjective pt was seen with guards at bedside. notes that abd more tender today. Diet advancing Review of Systems Review of Systems: All systems reviewed & are unremarkable except as noted in Subjective Physical Exam Physical Exam: General: Alert, oriented. No acute distress Skin: surgical incisions clean Neuro: No gross deficits while laying in bed HEENT: NC/AT CV: RRR Resp: no increased effort of breathing Abdomen: Soft, tender Extremities: No edema in lower extremities bilaterally. Results & Data Results & Data Vital Signs (Past 12 Hours) Vital Signs Temp Pulse Pulse Resp BP Pulse Ox O2 Del Method 12/19/23 11:46 37.4 C 78 16 138/81 97 Room Air 12/19/23 08:00 86 12/19/23 07:26 36.5 C 82 18 138/80 97 Room Air 12/19/23 02:59 36.8 C 85 16 126/77 96 Room Air
[2023-12-20 07:32] LABS: Hematocrit (blood only) 37.4 % (42.0-52.0); Hemoglobin 11.6 g/dl (14.0-18.0); Mean Corpuscular Hemoglobin 23.6 pg (25.0-34.0); Mean Platelet Volume 10.4 fL (9.4-12.4); Platelet Count 208 K/uL (130-400); RDW Coefficient of Variation 13.3 % (11.5-14.5); RDW Standard Deviation 36.9 fL (36.4-46.3); Red Blood Count 4.92 M/uL (4.70-6.10); White Blood Count 6.94 K/ul (4.8-10.8)
[2023-12-20 07:41] LABS: BUN Creatinine Ratio 9.2 (10-20); Calcium 8.5 mg/dl (8.6-10.3); Creatinine Clr Calc Pharmacy 93.1 ml/min; Est GFR (African American) 107.5 ml/min; Est GFR (Non-African American) 92.7 ml/min; Magnesium 1.5 mg/dl (1.7-2.4); Phosphorus 3.2 mg/dl (2.5-4.9); Potassium 3.5 mmol/L (3.5-5.1)
[2023-12-20 08:00] LABS: Ferritin 158.3 ng/ml (8-388)
[2023-12-20 08:06] LABS: Folate (Folic Acid),Ser orPlas 8.52 ng/ml (>5.38)
--- NOTE | 2023-12-20 08:33 | Surgery Progress Note ---
<Statement entered by Giana Dyer DO - 12/20/23 10:23> I have seen and examined this patient with the surgical PA, I agree with this plan. Date of Service December 20, 2023 Assessment & Plan (1) Foreign body, swallowed: Plan: POD#2 diagnostic laparoscopy, removal of foreign bodies and repair of surigcal enterotomy WBC 6.9, hbg 11.6. vitals stable incisions c/d/i pt hungry, tolerating clears, no n/v. + flatus. will advance to fulls. heplock IVF awaiting further return of bowel function ambulate as possible Admission and Anticipated Discharge Date Admission Date: December 17, 2023 Subjective Pt doing okay. Abdominal pain controlled, but does feel like he feels a little "tight or bloated". He is passing gas. No BM yet. Tolerating clears without nausea/vomiting. He is hungry for more. Physical Exam Physical Exam: awake/alert, no distress Respiratory: normal respiratory effort Gastrointestinal (Abdomen): Inspection/Auscultation: + abdominal surgical incision (c/d/i with dermabond); abdomen not distended Percussion/Palpation: + abdomen tender (expected lina incisional discomfort) and abdomen soft Results & Data Vital Signs (Past 12 Hours) Vital Signs Temp Pulse Pulse Resp BP Pulse Ox O2 Del Method 12/20/23 07:43 98.1 F 92 H 20 132/79 96 Room Air 12/20/23 02:53 97.0 F L 90 15 129/67 96 Room Air 12/19/23 23:32 92 H 12/19/23 22:45 98.6 F 94 H 16 143/77 H 95 Room Air PG Care Time/CCT Total # of Minutes Spent Total Time Spent with Patient: Total time spent is greater than 50% in coordination of care (as documented) at patient's floor/unit and/or counseling patient: Coding Level of Care Code 93522 Post Operative Follow-Up Diagnoses Foreign body, swallowed T18.9XXA Encounter type: initial encounter (1) Foreign body, swallowed Encounter type: initial encounter Qualified Code(s): T18.9XXA - Foreign body of alimentary tract, part unspecified, initial encounter
[2023-12-20] MEDS: MAGNESIUM SULFATE / D5W 1 GM/100 ML BAG IV SCH (08:44)
[2023-12-20] MEDS: IRON SUCROSE 200 MG in 0.9 % SODIUM CHLORIDE 100 ML IV ONE (09:29)
--- NOTE | 2023-12-20 13:42 | Hospitalist Progress Note ---
Date of Service December 20, 2023 Assessment & Plan (1) GI bleed: Plan Pt is a 43yoM with PMHx significant for antisocial personality disorder, impulse control/conduct disorder, hypertension, hyperlipidemia, DM 2 insulin requiring, bronchial asthma admitted for surgical procedure after foreign body ingestion. Foreign Body ingestion Duodenal and Jejunal erosions Pt with Hx of ingesting sporks Was having N/V and abdominal pain related to ingestion of multiple foreign bodies (sporks) from last month KUB peformed CT abd/pelvis obtained. Showed "Multiple spoon-shaped radiopaque foreign bodies seen within the stomach/duodenum and a loop of the jejunum within the left mid abdomen. No evidence for a bowel obstruction or bowel perforation at this time." EGD performed on arrival to the ED -3 sporks were removed we inserted a pediatric colonoscope and completed the exam to the jejunum where it was mentioned on CT that another foreign body was identified. We saw evidence of erosions - likely traumatic - but no foreign body. Impression: - Normal esophagus. - Were found in the stomach. - Duodenal erosions. - Jejunal erosion without bleeding. - No specimens collected. Pt was referred to General Surgery by GI for additional evaluation of foreign body in the small bowel that was unretrievable by endoscopy. Per General surgery, -s/p diagnostic laparoscopy, removal of foreign bodies and repair of surgical enterotomy on 12/17 -awaiting further return of bowel function -d/c sullivan -ambulate as possible -advance to fulls Continue IV PPI Continue clears Continue to monitor Iron Deficiency Anemia Anemia, microcytic Anemia panel noting iron deficiency anemia s/p IV venofer on 12/19 Follow H&H, transfuse PRBC if hemoglobin less than 7 and or from symptomatic anemia Continue to monitor Pulmonary nodule Noted on CT abd/pelvis: A 3 mm indeterminate pulmonary nodule within the left lower lobe. Oupt followup hypertension BP stable patient not on maintenance medications Continue to monitor hyperlipidemia not on statin Rx DMII, not currently controlled insulin requiring hypoglycemic episode upon arrival at the ER hemoglobin A1c noted to be 9.3 Close PCP followup bronchial asthma not in acute exacerbation Stable, continue to monitor antisocial personality disorder/impulse control/conduct disorder patient currently without self-harm intent Outpt [facility] followup for intermittent attempts Diet:clears DVT prophylaxis: SCDs Re: GI bleed Dispo: return to [facility] once medically stable Admission and Anticipated Discharge Date Admission Date: December 17, 2023 Subjective pt was seen in the AM. States tolerating clears. Passing gas but no bowel movement yet. Review of Systems Review of Systems: All systems reviewed & are unremarkable except as noted in Subjective Physical Exam Physical Exam: General: Alert, oriented. No acute distress Skin: surgical incisions clean Neuro: No gross deficits while laying in bed HEENT: NC/AT CV: RRR Resp: no increased effort of breathing Abdomen: Soft, tender Extremities: No edema in lower extremities bilaterally. Results & Data Results & Data Vital Signs (Past 12 Hours) Vital Signs Temp Pulse Resp BP Pulse Ox O2 Del Method 12/20/23 11:29 36.7 C 61 19 146/84 H 96 Room Air 12/20/23 07:43 36.7 C 92 H 20 132/79 96 Room Air 12/20/23 02:53 36.1 C L 90 15 129/67 96 Room Air
[2023-12-21 06:31] LABS: Hematocrit (blood only) 38.7 % (42.0-52.0); Hemoglobin 12.2 g/dl (14.0-18.0); Mean Corpuscular Hemoglobin 23.7 pg (25.0-34.0); Mean Corpuscular Hgb Conc 31.5 g/dL (32.0-36.0); Mean Corpuscular Volume 75.1 fL (80.0-100.0); Mean Platelet Volume 10.5 fL (9.4-12.4); Platelet Count 218 K/uL (130-400); RDW Coefficient of Variation 13.3 % (11.5-14.5); RDW Standard Deviation 35.8 fL (36.4-46.3); Red Blood Count 5.15 M/uL (4.70-6.10); White Blood Count 6.88 K/ul (4.8-10.8)
[2023-12-21 07:01] LABS: BUN Creatinine Ratio 8.1 (10-20); Calcium 8.7 mg/dl (8.6-10.3); Creatinine Clr Calc Pharmacy 92.2 ml/min; Est GFR (African American) 106.2 ml/min; Est GFR (Non-African American) 91.6 ml/min; Magnesium 1.9 mg/dl (1.7-2.4); Phosphorus 3.5 mg/dl (2.5-4.9); Potassium 3.5 mmol/L (3.5-5.1)
--- NOTE | 2023-12-21 08:13 | Surgery Progress Note ---
Date of Service December 21, 2023 Assessment & Plan (1) S/P laparoscopic surgery: Plan: POD 4 Diagnostic laparoscopy; enteral removal of foreign body and repair doing well, +flatus no BM yet VSS , wbc wnl tolerat. full liquids will advance to low fiber p/o incisional cdi dermabond , no s/s infection will need f/u with surgeon in 2 weeks continue low fiber until f/u Admission and Anticipated Discharge Date Admission Date: December 17, 2023 Supervising Physician Co-Signing Physician Notes Patient discussed with Maru FERNANDO, agree with above. Status post removal of foreign bodies from small intestine. Tolerating diet, pain controlled, passing flatus. Okay to discharge, follow-up with general surgery in 2 weeks, wound care instructions, activity restrictions, return precautions given. Subjective denies bm , +flatus no abd pain luz marina full liquid diet Review of Systems Constitutional: no fever and no chills Respiratory: no dyspnea Cardiovascular: no chest pain Gastrointestinal: no abdominal pain, no nausea and no vomiting Musculoskeletal: no muscle weakness Physical Exam Physical Exam: alert oriented Constitutional: cooperative and comfortable; no acute distress Respiratory: normal respiratory effort and able to speak in complete sentences; no respiratory distress Cardiovascular: Rate/Rhythm: regular rate Gastrointestinal (Abdomen): Inspection/Auscultation: + abdominal surgical incision (dermabond CDI ); abdomen not distended Percussion/Palpation: abdomen soft; no guarding Musculoskeletal: no cyanosis or clubbing, extremities motor strength 5/5 Results & Data Vital Signs (Past 12 Hours) Vital Signs Temp Pulse Pulse Resp BP Pulse Ox O2 Del Method 12/21/23 02:26 97.9 F 87 16 130/75 95 Room Air 12/21/23 00:15 Room Air 12/20/23 23:29 98.2 F 93 H 18 127/77 94 Room Air 12/20/23 23:15 91 H Results CBC w Diff Results: RBC 5.15 M/uL (4.70-6.10) 12/21/23 WBC 6.88 K/ul (4.8-10.8) 12/21/23 Hgb 12.2 g/dl (14.0-18.0) L 12/21/23 Hct 38.7 % (42.0-52.0) L 12/21/23 MCV 75.1 fL (80.0-100.0) L 12/21/23 MCH 23.7 pg (25.0-34.0) L 12/21/23 MCHC 31.5 g/dL (32.0-36.0) L 12/21/23 RDW Standard Deviation 35.8 fL (36.4-46.3) L 12/21/23 RDW Coefficient of Variation 13.3 % (11.5-14.5) 12/21/23 Plt Count 218 K/uL (130-400) 12/21/23 MPV 10.5 fL (9.4-12.4) 12/21/23 Neutrophils (%) (Auto) 92.4 % 12/18/23 Lymphocytes (%) (Auto) 4.8 % 12/18/23 Monocytes # (Auto) 0.26 K/uL (0.11-0.59) 12/18/23 Eosinophils # (Auto) 0.00 K/uL (0.00-0.50) 12/18/23 Immature Granulocyte % (Auto) 0.4 % 12/18/23 Neutrophils # (Auto) 10.29 K/uL (1.40-6.50) H 12/18/23 Lymphocytes # (Auto) 0.53 K/uL (1.20-3.40) L 12/18/23 Monocytes # (Auto) 0.26 K/uL (0.11-0.59) 12/18/23 Eosinophils # (Auto) 0.00 K/uL (0.00-0.50) 12/18/23 Basophils # (Auto) 0.01 K/uL (0.00-0.20) 12/18/23 Immature Granulocyte # (Auto) 0.04 K/uL (0.01-0.20) 4 PG Care Time/CCT Total # of Minutes Spent Total Time Spent with Patient: Total time spent is greater than 50% in coordination of care (as documented) at patient's floor/unit and/or counseling patient: Coding Level of Care Code 48854 Post Operative Follow-Up Diagnoses S/P laparoscopic surgery Z98.890
[2023-12-21] MEDS: LANTUS PER UNIT CHARGE SC SCH (09:12)
--- NOTE | 2023-12-21 13:47 | Discharge Summary ---
Discharge Summary Date of Service December 21, 2023 Principal Dx & Hospital Course #1 = Principal Diagnosis (1) GI bleed: Plan Pt is a 43yoM with PMHx significant for antisocial personality disorder, impulse control/conduct disorder, hypertension, hyperlipidemia, DM 2 insulin requiring, bronchial asthma admitted for surgical procedure after foreign body ingestion. Foreign Body ingestion Duodenal and Jejunal erosions Pt with Hx of ingesting sporks Was having N/V and abdominal pain related to ingestion of multiple foreign bodies (sporks) from last month KUB peformed CT abd/pelvis obtained. Showed "Multiple spoon-shaped radiopaque foreign bodies seen within the stomach/duodenum and a loop of the jejunum within the left mid abdomen. No evidence for a bowel obstruction or bowel perforation at this time." EGD performed on arrival to the ED -3 sporks were removed we inserted a pediatric colonoscope and completed the exam to the jejunum where it was mentioned on CT that another foreign body was identified. We saw evidence of erosions - likely traumatic - but no foreign body. Impression: - Normal esophagus. - Were found in the stomach. - Duodenal erosions. - Jejunal erosion without bleeding. - No specimens collected. Pt was referred to General Surgery by GI for additional evaluation of foreign body in the small bowel that was unretrievable by endoscopy. Per General surgery, -s/p diagnostic laparoscopy, removal of foreign bodies and repair of surgical enterotomy on 12/17 (removed 5 sporks) -d/c sullivan -ambulate as possible -advanced to low fiber diet -will need f/u with surgeon in 2 weeks -continue low fiber until follow up with surgeon -follow-up with general surgery in 2 weeks, wound care instructions, activity restrictions, return precautions given. Pt passing gas on discharge, no bowel movement yet. Per surgery stable for d/c Continued IV PPI while hospitalized Please ensure followup with General Surgery Please ensure no access to sporks Iron Deficiency Anemia Anemia, microcytic Anemia panel noting iron deficiency anemia s/p IV venofer on 12/19 Follow H&H, transfuse PRBC if hemoglobin less than 7 and or from symptomatic anemia Continue to monitor Pulmonary nodule Noted on CT abd/pelvis: A 3 mm indeterminate pulmonary nodule within the left lower lobe. Oupt followup hypertension BP stable patient not on maintenance medications Continue to monitor hyperlipidemia not on statin Rx DMII, not currently controlled insulin requiring hypoglycemic episode upon arrival at the ER hemoglobin A1c noted to be 9.3 Close PCP followup for adequate control bronchial asthma not in acute exacerbation Stable, continue to monitor antisocial personality disorder/impulse control/conduct disorder patient currently without self-harm intent [facility]pt [facility] followup for intermittent attempts Notes For Next Care Provider please ensure follow up with general surgery Please ensure BM Diabetes currently not controlled, hgba1c of 9.3 PCP followup for adequate control Medication Changes From Visit None Admission HPI Per Admitting Provider History obtained from patient and records. Medical history significant for hypertension, hyperlipidemia, DM 2 insulin requiring, bronchial asthma, antisocial personality disorder, impulse control/conduct disorder. Last [facility] ER visit September 2023 for spoon ingestion secondary to self-harm. Gastritis and nonbleeding duodenal ulcers noted on EGD. Two sporks removed successfully. Patient discharged on Prilosec course. Last month, patient ingested multiple sporks again secondary to fleeting self- harm intent. 10 days ago, patient noted achy abdominal pain radiating to his chest and left shoulder associated with bloody diarrhea symptoms. No hematemesis, coffee-ground emesis, fever or chills as per patient. Patient without self-harm intent since last month. Patient sent to ER today due to worsening symptoms. CT abdomen pelvis showed multiple spoon-shaped radiopaque foreign bodies seen within the stomach/duodenum and a loop of the jejunum within the left mid abdomen. Urgent EGD done by GI specialist on-call. Duodenal and jejunal erosions noted on endoscopy. 3 sporks were found in the gastric antrum and subsequently removed. GI specialist recommended admission for surgical evaluation due to potential remaining foreign bodies in the small intestine. Medical History as above Surgical History : None Family History : Heart disease Personal/Social history : Non-smoker, no EtOH intake, current inmate Admission Exam Per Admitting Provider GENERAL: Comfortable, slightly anxious, no respiratory distress SKIN: Pallor, warm HEENT: Alopecia, pale palpebral conjunctivae, no ptosis, dry buccal mucosa NECK : Supple, no tenderness CHEST : CTA, no tenderness HEART : RRR, no obvious murmurs ABDOMEN: Some distention, hypogastric tenderness EXTREMITIES : No LE swelling/tenderness, no other conspicuous deformities noted NEUROLOGIC : Coherent, no facial asymmetry, no other gross focality Discharge Exam General: Alert, oriented. No acute distress Skin: surgical incisions clean Neuro: No gross deficits while laying in bed HEENT: NC/AT CV: RRR Resp: no increased effort of breathing Abdomen: Soft, tender Extremities: No edema in lower extremities bilaterally. Updated Medication List Medication Instructions Recorded Confirmed Type albuterol sulfate 90 mcg/actuation 2 puff inhalation QID PRN SOB ##0 09/30/23 12/17/23 History aerosol inhaler insulin glargine 100 unit/mL 30 unit subcut BID 09/30/23 12/17/23 History subcutaneous solution insulin regular human 100 unit/mL See Rx Instructions .Route .COMPLEX 09/30/23 12/17/23 History injection solution (Novolin R Regular U-100 Insulin) bismuth subsalicylate 262 mg/15 mL 524 mg PO BID PRN Abdominal Pain 12/17/23 12/17/23 History oral suspension Hospital Stay Data Consultations 12/17/23 13:59 Consult Gastroenterology Stat 12/17/23 17:27 ED Decision to Admit Stat 12/17/23 19:54 Consult General Surgery Stat Procedures Performed Operation Date: 12/18/23 10:00 Actual Procedures p Diagnostic laparoscopy; enteral removal of foreign body and repair(Not Applicable) - Giana Dyer DO Diagnostic Imagining Performed 12/17/23 13:33 CT abd pelvis oral and IV con Stat 12/17/23 20:59 CT Abd and Pelvis [CT abd pelvis wo con] Stat KUB X-Ray 12/17/23 11:55 KUB CLINICAL HISTORY: Foreign body assessment. The patient swallowed a spork. FINDINGS: 3 AP, portable, supine abdominal radiographs are compared to study dated 09/30/2023. A 16 cm linear radiodense foreign body projects over the left upper quadrant, likely corresponding to the reported history of an ingested spork. There may be a second linear radiodense Foreign body projecting over the central upper abdomen. This is not well delineated. A button projecting over the right midabdomen could represent an ingested foreign body or could be external to the patient. No bowel obstruction is seen. Moderate fecal retention is noted in the right colon. There are no abnormal abdominal calcifications. The bony structures appear intact. IMPRESSION: 1. A 16 cm linear radiodense foreign body projecting over left upper quadrant likely corresponds to the reported history of a swallowed spork. 2. There may be a second faintly radiodense foreign body projected over the central upper abdomen. This nodule delineated. 3. A button projecting the right mid abdomen could represent an additional ingested foreign body or could be external to the patient. Correlate clinically. Electronically signed by: Hans Mckeon M.D. 12/17/2023 12:36 PM Abdomen/Pelvis CT 12/17/23 13:[address] WITH IV AND ORAL CONTRAST CT DOSE: 605.88 mGy.cm HISTORY: foreign body, rectal bleeding TECHNIQUE: Multiaxial CT images of the abdomen and pelvis were performed following the use of intravenous and oral contrast. A dose lowering technique was utilized adhering to the principles of ALARA. COMPARISON STUDY: None. FINDINGS: There is a 3 mm nodule within the left lower lobe on image 34. Mild dependent changes seen at the lung bases. No pneumoperitoneum. No pneumatosis. The liver, gallbladder, pancreas, spleen, and adrenal glands are unremarkable. The main portal vein is patent. Multiple bilateral renal hypodense lesions. Some of these are subcentimeter in size and technically too small to characterize. However, these favor cysts. No hydronephrosis. Normal caliber abdominal aorta. No retroperitoneal or pelvic lymphadenopathy. The bladder is unremarkable. Moderate fecal retention. No bowel wall thickening or obstruction. Normal appendix. There is a linear spoon-shaped radiopaque foreign body within the gastric antrum which extends into the proximal duodenum. This measures approximately 12 cm in length. There are multiple additional similar-appearing spoon-shaped radio opaque foreign bodies within a jejunal loop within the left side the abdomen also measuring 12 cm in length. The loop of bowel surrounding the radiopaque foreign bodies is slightly distended. However, no evidence for a bowel obstruction or bowel perforation at this time. IMPRESSION: 1. Multiple spoon-shaped radiopaque foreign bodies seen within the stomach/duodenum and a loop of the jejunum within the left mid abdomen. No evidence for a bowel obstruction or bowel perforation at this time. 2. A 3 mm indeterminate pulmonary nodule within the left lower lobe. ACT 112: Negative or not required by law. Electronically signed by: Gurwinder Higgins M.D. 12/17/2023 4:27 PM Abdomen/Pelvis CT 12/17/23 20:59 Exam(s): CT ABDOMEN + PELVIS Without Contrast EXAM: CT Abdomen and Pelvis Without Intravenous Contrast CLINICAL HISTORY: Reason for exam: abd pain sp endoscopy. TECHNIQUE: Axial computed tomography images of the abdomen and pelvis without intravenous contrast. CTDI is 14.19 mGy and DLP is 699.57 mGy-cm. Automated exposure control was utilized for the study. A dose lowering technique was utilized adhering to the principles of ALARA. COMPARISON: 12/17/2023. FINDINGS: Lung bases: Bilateral basilar dependent atelectasis. No mass. No consolidation. ABDOMEN: Liver: Unremarkable. Gallbladder and bile ducts: Unremarkable. No calcified stones. No ductal dilation. Pancreas: Unremarkable. No ductal dilation. Spleen: Unremarkable. No splenomegaly. Adrenals: Unremarkable. No mass. Kidneys and ureters: Bilateral renal cyst, poorly characterized. No obstructive uropathy. No obstructing renal or ureteral calculi. No hydronephrosis or hydroureter. Stomach and bowel: The previously demonstrated spoon-shaped radiodensity within the stomach is no longer identified. Additional fork and probable overlying spoon-shaped radiopaque foreign body in nonobstructed small bowel loop in the left abdomen likely jejunum is present, likely not significantly changed in location. Oral contrast material was noted in the distal small bowel, appendix and colon to the splenic flexure. No evidence for bowel obstruction or ileus. Moderate stool within the left and sigmoid colon. No evidence for diverticulitis. PELVIS: Appendix: No findings to suggest acute appendicitis. Bladder: Unremarkable. No stones. Reproductive: Unremarkable as visualized. ABDOMEN and PELVIS: Intraperitoneal space: No free air. No free fluid. Bones/joints: No acute fracture. Soft tissues: Unremarkable. Vasculature: Unremarkable. No abdominal aortic aneurysm. Lymph nodes: Unremarkable. No enlarged lymph nodes. IMPRESSION: No free gas or free intraperitoneal fluid to suggest bowel perforation status post endoscopy. Redemonstrated fork and spoon shaped adjacent foreign bodies within small bowel loop in the left abdomen, not significantly changed. No proximal obstruction. Previously demonstrated foreign body within the stomach is no longer identified. No bowel obstruction or ileus. Otherwise no significant interval change. Electronically signed by: Mohamud Diaz M.D. 12/18/23 02:01 AM Pending Results Patient Have Any Pending Studies at Discharge: No Discharge Instructions Given to Patient (Per Discharging Provider) You have skin glue over your incisions called dermabond. you may shower with this on. It will tend to dissolve and fall off within a couple weeks. Do not pick at the skin glue You may take Tylenol #3 if your facility provides it for pain. Otherwise you may take Tylenol or Ibuprofen. Do not exceed the daily limit of acetaminophen within a 24 hour time period. please follow up with General surgery in 2 weeks Total Time Total Time Spent Total Time Spent (In Minutes): 75
== END 2023-12-21 16:55 | DRG 330 ==
LOC: ED 10:45 → 4W 17:31 → OR 17:31 → 4W 21:01 → 2W 12-20 23:05